=== PATIENT | female | born 1960 | race Two or more races ===

== ENCOUNTER → 2020-06-20 11:37 | Outpatient (BNVA) | payer OTHER, SELFPAY | PROVIDERS: PCP Physician Assistant; Referring Provider Physician Assistant; Visit Provider Internal Medicine Gastroenterology | DX: Z13.89 Encounter for screening for other disorder (principal) ==

== ENCOUNTER 2020-08-30 07:53 | Outpatient (REF) | payer OTHER, SELFPAY | END 2020-08-30 07:54 | disposition home or self-care (01) | LOC: HO.LAB 07:53 | PROVIDERS: PCP Physician Assistant; Visit Provider Internal Medicine | DX: Z20.828 Contact with and (suspected) exposure to other viral communicable diseases (principal) | CPT/HCPCS: C9803; U0003 ==

== ENCOUNTER → 2020-12-20 11:11 | Outpatient (BNVA) | payer OTHER, SELFPAY | PROVIDERS: Visit Provider Internal Medicine Gastroenterology ==

== ENCOUNTER 2021-01-31 07:52 | Outpatient (REF) | payer OTHER, SELFPAY ==
[2021-01-31 08:55] LABS: MANUAL DIFF FLAG NO
[2021-01-31 08:57] LABS: Basophils Absolute Auto 0.1 X10*3/uL (0.0-0.2); Basophils Percent Auto 0.7 % (0-2); Eosinophils Absolute Auto 0.2 X10*3/uL (0.0-0.4); Eosinophils Percent Auto 2.6 % (0-4); Hematocrit 44.3 % (37-47); Hemoglobin 14.2 g/dl (12.0-16.0); Imm Gran Abs Auto 0.03 X10*3/uL (0.00-0.03); Imm Gran Pct Auto 0.3 % (0.0-0.4); Lymphocytes Absolute Auto 4.6 X10*3/uL (1.2-4.9); Lymphocytes Percent Auto 50.5 % (20-40); Mean Corpuscular HGB Conc 32.1 g/dl (31.0-35.0); Mean Corpuscular Hemoglobin 28.9 pg (27.0-33.0); Mean Corpuscular Volume 90.2 fL (80-98); Mean Platelet Volume 10.3 fL (9.4-12.3); Monocytes Absolute Auto 0.8 X10*3/uL (0.1-1.2); Monocytes Percent Auto 8.3 % (2-11); Neutrophils Absolute Auto 3.4 X10*3/uL (2.0-8.3); Neutrophils Percent Auto 37.6 % (45-73); Platelet Count 378 X10*3/uL (160-400); Red Blood Count 4.91 X10*6/uL (4.20-5.50); Red Cell Distribution Width 13.1 % (11.0-16.0); White Blood Count 9.2 X10*3/uL (4.8-10.8)
[2021-01-31 09:25] LABS: Lipase 22 U/L (8-78)
[2021-01-31 09:27] LABS: Alanine Aminotransferase 29 U/L (0-31); Albumin Level 4.5 g/dL (3.5-5.0); Alkaline Phosphatase 83 U/L (39-117); Anion Gap 15 (12-20); Aspartate Amino Transferase 28 U/L (5-31); Bilirubin Total 0.8 mg/dL (0.0-1.0); Blood Urea Nitrogen 14 mg/dL (9-16); Calcium 9.9 mg/dL (8.4-10.2); Carbon Dioxide 26 mmol/L (22-29); Chloride 107 mmol/L (96-108); Cholesterol 137 mg/dL; Estimated Glomerular Filt Rate > 60; Glucose Fasting 99 mg/dL (60-99); HDL Cholesterol 47 mg/dL; LDL Cholesterol Calculated 68 mg/dl; Potassium 4.6 mmol/L (3.3-5.1); Sodium 143 mmol/L (135-145); Total Protein 7.6 g/dL (6.5-8.0); Triglycerides 111 mg/dL; Uric Acid 6.6 mg/dL (2.4-5.7)
[2021-01-31 09:44] LABS: Creatinine Urine 26.61 mg/dL; Microalbumin Urine < 5.0 mg/L
[2021-01-31 09:46] LABS: TSH reflex Free T4 0.94 uIU/mL (0.32-4.0); Vitamin D 25-OH Total 48.6 ng/mL (>30)
== END 2021-01-31 07:53 | disposition home or self-care (01) ==
LOC: HO.LAB 07:52
PROVIDERS: Absent Provider Physician Assistant; PCP Physician Assistant; Visit Provider Internal Medicine Gastroenterology
DX: E78.5 Hyperlipidemia, unspecified (principal); I10 Essential (primary) hypertension; K21.9 Gastro-esophageal reflux disease without esophagitis; R80.9 Proteinuria, unspecified; M10.9 Gout, unspecified
CPT/HCPCS: 36415; 80053; 80061; 82043; 82306; 83690; 84443; 84550; 85025

== ENCOUNTER 2021-03-12 07:45 | Outpatient (REF) | payer OTHER, SELFPAY ==
--- NOTE | ~2021-03-12 | MM_ITS ---
EXAMINATION: MM SCREENING DIGITAL BREAST TOMOSYNTHESIS, BILATERAL CLINICAL INFORMATION: Screening. Asymptomatic. The lifetime risk of breast cancer based on the Tyrer-Cuzick Model is 5.0%. COMPARISON: Mammography: March 02, 2020 and studies dating back to June 09, 2014 TECHNIQUE: Digital breast tomosynthesis is performed in both the craniocaudal and mediolateral oblique views along with computer-aided detection (CAD). Synthesized 2D images are generated from the tomosynthesis. FINDINGS: The breasts are heterogeneously dense, which may obscure small masses (ACR BI-RADS breast composition Category c). There are no significant masses, abnormal calcifications, or other abnormalities. MM/MM tomosynthesis screening BI IMPRESSION: There are no significant changes from prior study. ASSESSMENT: BI-RADS 1: Negative RECOMMENDATION: Routine annual mammography screening. This patient's information was entered into a reminder system with a target due date for their next mammogram.
== END 2021-03-12 07:46 | disposition home or self-care (01) ==
LOC: HO.MAMMO 07:45
PROVIDERS: Visit Provider Physician Assistant
DX: Z12.31 Encounter for screening mammogram for malignant neoplasm of breast (principal)
CPT/HCPCS: 77063; 77067

== ENCOUNTER 2021-05-06 07:23 | Outpatient (REF) | payer OTHER, SELFPAY | END 2021-05-06 07:24 | disposition home or self-care (01) | LOC: HO.LAB 07:23 | PROVIDERS: PCP Physician Assistant; Visit Provider Physician Assistant | DX: Z13.89 Encounter for screening for other disorder (principal) ==

== ENCOUNTER 2021-05-06 07:25 | Outpatient (REF) | payer OTHER, SELFPAY ==
[2021-05-06 07:51] LABS: Hemoglobin 13.8 g/dl (12.0-16.0); Mean Corpuscular HGB Conc 32.1 g/dl (31.0-35.0); Mean Corpuscular Hemoglobin 28.9 pg (27.0-33.0); Mean Platelet Volume 9.9 fL (9.4-12.3); Platelet Count 401 X10*3/uL (160-400); Red Blood Count 4.78 X10*6/uL (4.20-5.50)
[2021-05-06 08:28] LABS: Alanine Aminotransferase 23 U/L (0-31); Albumin Level 4.5 g/dL (3.5-5.0); Alkaline Phosphatase 81 U/L (39-117); Anion Gap 15 (12-20); Aspartate Amino Transferase 23 U/L (5-31); Bilirubin Total 0.4 mg/dL (0.0-1.0); Blood Urea Nitrogen 13 mg/dL (9-16); Calcium 9.6 mg/dL (8.4-10.2); Carbon Dioxide 24 mmol/L (22-29); Chloride 110 mmol/L (96-108); Cholesterol 140 mg/dL; Estimated Glomerular Filt Rate > 60; Glucose Fasting 101 mg/dL (60-99); HDL Cholesterol 47 mg/dL; LDL Cholesterol Calculated 66 mg/dl; Potassium 4.6 mmol/L (3.3-5.1); Sodium 144 mmol/L (135-145); Total Protein 7.7 g/dL (6.5-8.0); Triglycerides 136 mg/dL
[2021-05-06 08:31] LABS: TSH reflex Free T4 1.24 uIU/mL (0.32-4.0)
[2021-05-06 08:33] LABS: Uric Acid 6.7 mg/dL (2.4-5.7)
[2021-05-06 09:40] LABS: Creatinine Urine 90.71 mg/dL; Microalbum/Creatinine Ratio Ur 14.3 ug/mg cr
== END 2021-05-06 07:26 | disposition home or self-care (01) ==
LOC: HO.LAB 07:25
PROVIDERS: PCP Physician Assistant; Visit Provider Internal Medicine
DX: Z20.822 Contact with and (suspected) exposure to COVID-19 (principal); I10 Essential (primary) hypertension; M10.9 Gout, unspecified
CPT/HCPCS: 36415; 80053; 80061; 82043; 84443; 84550; 85027; C9803; U0003; U0005

== ENCOUNTER 2021-06-12 13:45 | Outpatient (REF) | payer SELFPAY ==
[2021-06-12 15:37] LABS: MANUAL DIFF FLAG NO
[2021-06-12 15:51] LABS: Basophils Absolute Auto 0.1 X10*3/uL (0.0-0.2); Basophils Percent Auto 0.6 % (0-2); Eosinophils Absolute Auto 0.3 X10*3/uL (0.0-0.4); Eosinophils Percent Auto 2.6 % (0-4); Hematocrit 43.2 % (37-47); Hemoglobin 14.2 g/dl (12.0-16.0); Imm Gran Abs Auto 0.04 X10*3/uL (0.00-0.03); Imm Gran Pct Auto 0.4 % (0.0-0.4); Lymphocytes Absolute Auto 4.9 X10*3/uL (1.2-4.9); Lymphocytes Percent Auto 46.3 % (20-40); Mean Corpuscular HGB Conc 32.9 g/dl (31.0-35.0); Mean Corpuscular Hemoglobin 29.2 pg (27.0-33.0); Mean Corpuscular Volume 88.7 fL (80-98); Mean Platelet Volume 9.5 fL (9.4-12.3); Monocytes Absolute Auto 0.9 X10*3/uL (0.1-1.2); Neutrophils Absolute Auto 4.5 X10*3/uL (2.0-8.3); Neutrophils Percent Auto 42.1 % (45-73); Platelet Count 398 X10*3/uL (160-400); Red Blood Count 4.87 X10*6/uL (4.20-5.50); Red Cell Distribution Width 13.2 % (11.0-16.0); White Blood Count 10.7 X10*3/uL (4.8-10.8)
[2021-06-12 16:15] LABS: Alanine Aminotransferase 23 U/L (0-31); Albumin Level 4.5 g/dL (3.5-5.0); Alkaline Phosphatase 73 U/L (39-117); Anion Gap 12 (12-20); Aspartate Amino Transferase 25 U/L (5-31); Bilirubin Total 0.6 mg/dL (0.0-1.0); Blood Urea Nitrogen 11 mg/dL (9-16); C Reactive Protein 0.63 mg/dL (< or = 0.50); Calcium 9.6 mg/dL (8.4-10.2); Carbon Dioxide 27 mmol/L (22-29); Chloride 105 mmol/L (96-108); Estimated Glomerular Filt Rate > 60; Glucose Random 102 mg/dL (60-115); Lipase 23 U/L (8-78); Potassium 4.2 mmol/L (3.3-5.1); Sodium 140 mmol/L (135-145); Total Protein 7.8 g/dL (6.5-8.0)
== END 2021-06-12 13:46 | disposition home or self-care (01) ==
LOC: HO.LAB 13:45
PROVIDERS: PCP Physician Assistant; Referring Provider Physician Assistant; Visit Provider Internal Medicine Gastroenterology
DX: R10.10 Upper abdominal pain, unspecified (principal); R11.2 Nausea with vomiting, unspecified; K76.0 Fatty (change of) liver, not elsewhere classified; K59.09 Other constipation; K21.9 Gastro-esophageal reflux disease without esophagitis; Z86.010 Personal history of colon polyps
CPT/HCPCS: 36415; 80053; 83690; 85025; 86140

== ENCOUNTER → 2021-07-10 13:21 | Outpatient (BNVA) | payer OTHER, SELFPAY | PROVIDERS: PCP Physician Assistant; Referring Provider Physician Assistant; Visit Provider Internal Medicine Gastroenterology ==

== ENCOUNTER 2022-04-06 08:52 | Outpatient (REF) | payer OTHER, SELFPAY ==
--- NOTE | ~2022-04-06 | MM_ITS ---
EXAMINATION: MM SCREENING DIGITAL BREAST TOMOSYNTHESIS, BILATERAL CLINICAL INFORMATION: Screening. Asymptomatic. The lifetime risk of breast cancer based on the Tyrer-Cuzick Model is 5%. COMPARISON: Mammography: 03/12/2021, 03/02/2020, 12/31/2018 TECHNIQUE: Digital breast tomosynthesis is performed in both the craniocaudal and mediolateral oblique views along with computer-aided detection (CAD). Synthesized 2D images are generated from the tomosynthesis. Additional left MLO view is provided. FINDINGS: There are scattered areas of fibroglandular density (ACR BI-RADS breast composition Category b). Parenchymal pattern is similar to prior exams. There is no developing density or interval mass or architectural abnormality. Again, there are scattered bilateral regional calcifications anterior mid upper outer quadrants. The axilla and skin contours are unremarkable. No significant changes. MM/MM tomosynthesis screening BI IMPRESSION: No mammographic evidence of malignancy. ASSESSMENT: BI-RADS 2: Benign RECOMMENDATION: Routine annual mammography screening. This patient's information was entered into a reminder system with a target due date for their next mammogram.
== END 2022-04-06 08:53 | disposition home or self-care (01) ==
LOC: HO.MAMMO 08:52
PROVIDERS: PCP Physician Assistant; Visit Provider Physician Assistant
DX: Z12.31 Encounter for screening mammogram for malignant neoplasm of breast (principal)
CPT/HCPCS: 77063; 77067

== ENCOUNTER 2022-04-22 07:30 | Outpatient (REF) | payer OTHER, SELFPAY ==
[2022-04-22 07:38] LABS: MANUAL DIFF FLAG NO
[2022-04-22 09:13] LABS: Basophils Absolute Auto 0.1 X10*3/uL (0.0-0.2); Basophils Percent Auto 0.9 % (0-2); Eosinophils Absolute Auto 0.3 X10*3/uL (0.0-0.4); Eosinophils Percent Auto 3.2 % (0-4); Hematocrit 42.6 % (37.0-47.0); Hemoglobin 13.8 g/dl (12.0-16.0); Imm Gran Abs Auto 0.03 X10*3/uL (0.00-0.03); Imm Gran Pct Auto 0.3 % (0.0-0.4); Lymphocytes Absolute Auto 4.3 X10*3/uL (1.2-4.9); Lymphocytes Percent Auto 48.9 % (20-40); Mean Corpuscular HGB Conc 32.4 g/dl (31.0-35.0); Mean Corpuscular Hemoglobin 28.9 pg (27.0-33.0); Mean Corpuscular Volume 89.1 fL (80.0-98.0); Mean Platelet Volume 10.1 fL (9.4-12.3); Monocytes Absolute Auto 0.7 X10*3/uL (0.1-1.2); Monocytes Percent Auto 8.1 % (2-11); Neutrophils Absolute Auto 3.4 x10*3/uL (2.0-8.3); Neutrophils Percent Auto 38.6 % (45-73); Platelet Count 382 X10*3/uL (160-400); Red Blood Count 4.78 X10*6/uL (4.20-5.50); Red Cell Distribution Width 13.1 % (11.0-16.0); White Blood Count 8.7 X10*3/uL (4.8-10.8)
[2022-04-22 09:54] LABS: Alanine Aminotransferase 25 U/L (0-31); Albumin Level 4.2 g/dL (3.5-5.0); Alkaline Phosphatase 93 U/L (39-117); Aspartate Amino Transferase 26 U/L (5-31); Bilirubin Direct 0.2 mg/dL (0.0-0.5); Bilirubin Total 0.5 mg/dL (0.0-1.0); Total Protein 7.4 g/dL (6.5-8.0)
[2022-04-22 10:02] LABS: Vitamin D 25-OH Total 26.9 ng/mL (>30)
[2022-04-22 10:23] LABS: Folate 8.2 ng/mL (> or = 4.0); Vitamin B12 391 pg/mL (200-900)
== END 2022-04-22 07:31 | disposition home or self-care (01) ==
LOC: HO.LAB 07:30
PROVIDERS: Absent Provider Physician Assistant; PCP Physician Assistant; Visit Provider Internal Medicine Gastroenterology
DX: K21.9 Gastro-esophageal reflux disease without esophagitis (principal)
CPT/HCPCS: 36415; 80076; 82306; 82607; 82746; 85025

== ENCOUNTER 2022-07-01 07:52 | Outpatient (REF) | payer OTHER, SELFPAY ==
[2022-07-01 09:29] LABS: Appearance Urine Clear; Color Urine Yellow; Glucose Urine UA Negative (Negative); Leukocyte Esterase Urine Small (1+) (Negative); Nitrite Urine Negative (Negative); Specific Gravity - Urine <= 1.005 (1.005-1.025); UMIC TRIGGER UACC YES; Urine Blood Trace (Negative); Urine Ketones Negative (Negative); Urine Protein Negative (Neg-Trace)
[2022-07-01 09:34] LABS: Bacteria Urine None Seen (None Seen); Hyaline Casts Urine 0-2 /LPF (0-2); RBC Urine 0-2 /HPF (0-2); Squamous Epithelial Cell Urine 0-2 /HPF (0-2); UACC Culture Trigger YES
== END 2022-07-01 07:53 | disposition home or self-care (01) ==
LOC: HO.LAB 07:52
PROVIDERS: PCP Physician Assistant; Visit Provider Physician Assistant
DX: R30.0 Dysuria (principal)
CPT/HCPCS: 81001; 87086

== ENCOUNTER 2022-10-05 07:02 | Day surgery (SDC) | payer OTHER, SELFPAY ==
[2022-09-30 09:21] VITALS: BMI 32.2
[2022-10-05 07:11] VITALS: BP 144/73; PULSE 80; RESP 18; TEMP 36.1; O2SAT 97
[2022-10-05] MEDS: Lactated Ringers 1,000 ML 100 ML IVCONT (07:27)
--- NOTE | 2022-10-05 07:36 | HO.ANESPROP2 ---
HPI - Anesthesia Eval Consult details Narrative: 62 F for colonoscopy [facility] Active Problems Active Problems: All Active Problems (Updated 09/30/22 @ 09:14 by Elsa Cai RN) HTN (hypertension) (Acute) Annual physical exam (Acute) Herpes labialis (Acute) Gout (Acute) Anxiety (Acute) Upper abdominal pain (Acute) Nausea and vomiting (Acute) Annual physical exam (Acute) Allergic reaction (Acute) Dry cough (Acute) Stress incontinence (Acute) UTI (urinary tract infection) (Acute) Vasomotor symptoms due to menopause (Acute) Obese (Acute) Irritation of eye (Acute) Fatty liver (Acute) History of adenomatous polyp of colon (Acute) Chronic constipation (Acute) GERD without esophagitis (Acute) Past Medical History Medical History (Updated 09/30/22 @ 09:14 by Elsa Cai RN) Chronic constipation Fatty liver GERD without esophagitis History of adenomatous polyp of colon History of Helicobacter pylori infection HTN (hypertension) Irritation of eye Family History Family History Father Hypertension Myocardial infarction CAD (coronary artery disease) Mother Hypertension Thyroid disease Family/Other Heart disease Asthma Epilepsy Family history of problems with anesthesia: No Surgical History Surgical History (Updated 09/30/22 @ 09:14 by Elsa Cai RN) History of bilateral cataract extraction History of laparoscopic cholecystectomy History of total abdominal hysterectomy Hx of colonoscopy Hx of endoscopy History of Problems with Anesthesia: No Social History Social History Household Members: Significant Other Housing: Apartment Alcohol intake: never Patient Tobacco Use Status: Never used Tobacco e-Cigarette/Vaping Use: Never Used Second Hand Smoke Exposure: No service: No Current occupational status: employed 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 Cognitive needs: No Hearing needs: No Vision needs: Yes Meds Allergies Allergy/AdvReac Type Severity Reaction Status Date / Time indomethacin Allergy Intermediate stomach Verified 09/30/22 09:14 upset, panic attack metoprolol AdvReac Intermediate Fatigue Verified 07/14/22 08:11 tizanidine AdvReac Intermediate hallucinati Verified 09/30/22 09:14 on Exam Exam Date and Time: October 05, 2022 0736 Height,Weight and Vital Signs: Height 4 ft 4 in Weight 56.245 kg Last Vital Signs Temp 97 F 10/05/22 07:11 Pulse 80 10/05/22 07:11 Resp 18 10/05/22 07:11 BP 144/73 H 10/05/22 07:11 Pulse Ox 97 10/05/22 07:11 O2 Del Method 10/05/22 07:11 Airway Mallampati Class: III TM Dist: >3cm Neck ROM: Full Loose/Missing/Broken Teeth: Yes Heart: S1,S2 Lungs: b/l breath sounds Assessment and Plan Assessment Anesthesia Assessment: Anesthesia Plan Discussed and Chart Reviewed Final Anesthetic Review Family History of Problems with Anesthesia: No History of Problems with Anesthesia: No NPO: Yes ASA Class: II Final Preanesthetic Review: Meds/Allgs Chart Reviewed, Consent Obtained/Reviewed and Anes Risks/Benef Reviewed Patient Risk: Intermediate Procedure Risk: Intermediate Anesthetic Plan Anesthetic Plan: MAC: Disposition: Standard PACU
--- NOTE | 2022-10-05 07:42 | MHC.SHP ---
Pre-Procedural Eval Section A Date of Service: 10/05/22 The patient is an INPATIENT: No The History & Physical has been completed within 30 days and I have reviewed it.: No Section B Chief Complaint: Personal history of colonic polyps Details of Present Illness: Screening, history of colon polyps Relevant Family History (Specify if Yes): No Relevant Social History: None Present Medications: see Short Stay Collaborative assessment Medical History: Significant History (Chronic constipation Fatty liver GERD without esophagitis History of adenomatous polyp of colon History of Helicobacter pylori infection Irritation of eye) History of Previous Operations: Relevant previous surgery/procedure and date(s) (History of bilateral cataract extraction History of laparoscopic cholecystectomy History of total abdominal hysterectomy Hx of colonoscopy Hx of endoscopy) Allergies: Allergies Allergy/AdvReac Type Severity Reaction Status Date / Time indomethacin Allergy Intermediate stomach Verified 09/30/22 09:14 upset, panic attack metoprolol AdvReac Intermediate Fatigue Verified 07/14/22 08:11 tizanidine AdvReac Intermediate hallucinati Verified 09/30/22 09:14 on Review of Systems Sugical H&P ROS: Negative: Constitution, Cardiovascular, Respiratory and Gastrointestinal Exam Surgical H&P Exam: Normal: Heart, Normal: Lungs, Normal: Extremities and Normal: Abdomen Plan Diagnosis/Plan: Unchanged I have reviewed the history and physical and performed a pertinent physical examination on my patient. No changes have occurred unless specified. Time Spent With Patient Time: Total time managing care of this patient today ____ minutes.
--- NOTE | 2022-10-05 07:48 | PM.OP ---
Brief Operative Note Date of Service: 10/05/22 Pre-op diagnosis: Colon cancer screening, history of colon polyps Post-op diagnosis: other (Diverticulosis, hemorrhoids) Procedure: COLONOSCOPY TO CECUM WITH BIOPSIES Surgeon: Frederic Garrison MD Anesthesia: MAC Was an Certified Nurse Aide used for this Procedure?: Yes Certified Nurse Aide: Marguerite Bear Estimated blood loss (mL): 0 Pathology: other (A. sigmoid bxs, R/O microscopic colitis) Condition: stable Disposition: PACU
--- NOTE | 2022-10-05 07:48 | W.PM.OPN ---
Operative Note Operative Note Date of Service: 10/05/22 Narrative: Pre-op diagnosis: Colon cancer screening, history of colon polyps Post-op diagnosis:?other (Diverticulosis, hemorrhoids) Surgeon: Frederic Garrison MD Anesthesia:?MAC COLONOSCOPY TILL CECUM WITH BIOPSIES Consent: Indications for the procedure and potential complications of bleeding, perforation, reaction to medications and missed diagnosis were discussed with the patient and informed consent was obtained. Instrument: Olympus PCF H 190 L variable stiffness pediatric colonoscope Monitoring: Vital signs and clinical assessment, intermittent blood pressure monitoring, continuous EKG monitoring, Pulse oximetry and Carbon Dioxide monitoring were done throughout the procedure. Colon withdrawl time was 17 minutes. Procedure: The patient was placed in the left lateral decubitis position and pre-procedure medications were administered. After a digital rectal examination of the ano-rectum, the video colonoscope was inserted into the rectum and advanced through the colon to the cecum. The colonoscope was slowly withdrawn in a retrograde panoramic fashion and the colon mucosa was carefully examined including a retroflexed view of the rectum. Findings and interventions are described below. Procedure Difficulty: Without difficulty Findings: Terminal Ileum: Not evaluated Cecum: Normal Ascending Colon: Patchy erythema in the right colon with scattered ulcers with some heme. Transverse Colon: Normal Descending Colon: Normal Sigmoid Colon: Patchy erythema in the right colon with scattered ulcers with some heme - random biopsies were obtained. Moderate diverticulosis Rectum: Normal Ano-rectum: Moderate internal hemorrhoids Colon preparation: Good after some irrigation Impression and Post Procedure Diagnosis: Colonoscopy Findings: No polyps were detected. Patchy erythema in the right colon with scattered ulcers with some heme - random biopsies were obtained. (Pt denied NSAID or aspirin use) Moderate diverticulosis seen in the sigmoid colon Moderate hemorrhoids on retroflexed exam. Plan: Await pathology results Patient has an appointment on 10/22/22 in the GI Clinic with Frederic Garrison M.D. Repeat Colonoscopy in 5 years if biopsies are normal. Above findings were reviewed with the patient and diverticulosis handout was given in the discharge area
[2022-10-05 08:29] VITALS: BP 131/80; PULSE 66; RESP 14; TEMP 37.5; O2SAT 99
[2022-10-05 08:44] VITALS: BP 142/82; PULSE 65; RESP 16; O2SAT 97
[2022-10-05 08:59] VITALS: BP 152/88; PULSE 63; RESP 16; TEMP 37.3; O2SAT 97
== END 2022-10-05 09:30 | disposition home or self-care (01) ==
PROVIDERS: PCP Physician Assistant; Visit Provider Internal Medicine Gastroenterology
PROC: 0DJD8ZZ Inspection of Lower Intestinal Tract, Via Natural or Artificial Opening Endoscopic (ICD-10-PCS; CPT 45378; principal; 2022-10-05 08:30)
DX: Z12.11 Encounter for screening for malignant neoplasm of colon (principal); Z86.010 Personal history of colon polyps; K57.30 Diverticulosis of large intestine without perforation or abscess without bleeding; K64.8 Other hemorrhoids; K59.09 Other constipation; K76.0 Fatty (change of) liver, not elsewhere classified; I10 Essential (primary) hypertension; F41.9 Anxiety disorder, unspecified; N95.1 Menopausal and female climacteric states; E66.09 Other obesity due to excess calories; Z68.32 Body mass index [BMI] 32.0-32.9, adult; Z79.899 Other long term (current) drug therapy; Z88.8 Allergy status to other drugs, medicaments and biological substances
CPT/HCPCS: 45380; 88305

== ENCOUNTER → 2022-10-29 07:35 | Outpatient (BNVA) | payer OTHER, SELFPAY | PROVIDERS: PCP Physician Assistant; Referring Provider Physician Assistant; Visit Provider Internal Medicine Gastroenterology | DX: Z13.89 Encounter for screening for other disorder (principal) ==

== ENCOUNTER 2023-02-02 09:39 | Outpatient (REF) | payer OTHER, SELFPAY ==
[2023-02-02 10:24] LABS: Hematocrit 42.4 % (37.0-47.0); Hemoglobin 13.8 g/dl (12.0-16.0); Mean Corpuscular HGB Conc 32.5 g/dl (31.0-35.0); Mean Corpuscular Hemoglobin 29.1 pg (27.0-33.0); Mean Corpuscular Volume 89.3 fL (80.0-98.0); Mean Platelet Volume 9.9 fL (9.4-12.3); Platelet Count 379 X10*3/uL (160-400); Red Blood Count 4.75 X10*6/uL (4.20-5.50); Red Cell Distribution Width 13.1 % (11.0-16.0); White Blood Count 8.6 X10*3/uL (4.8-10.8)
[2023-02-02 11:26] LABS: Appearance Urine Clear; Color Urine Yellow; Glucose Urine UA Negative (Negative); Leukocyte Esterase Urine Trace (Negative); Nitrite Urine Negative (Negative); PH 5.5 (5.0-9.0); UMIC TRIGGER UACC YES; Urine Blood Negative (Negative); Urine Ketones Negative (Negative); Urine Protein Negative (Neg-Trace)
[2023-02-02 11:29] LABS: Alanine Aminotransferase 29 U/L (0-31); Albumin Level 4.2 g/dL (3.5-5.0); Alkaline Phosphatase 75 U/L (39-117); Anion Gap 14 (12-20); Aspartate Amino Transferase 32 U/L (5-31); Bilirubin Total 0.7 mg/dL (0.0-1.0); Blood Urea Nitrogen 12 mg/dL (9-16); Calcium 9.5 mg/dL (8.4-10.2); Carbon Dioxide 24 mmol/L (22-29); Chloride 109 mmol/L (96-108); Cholesterol 146 mg/dL; Estimated Glomerular Filt Rate > 60; Glucose Fasting 92 mg/dL (60-99); HDL Cholesterol 43 mg/dL; LDL Cholesterol Calculated 79 mg/dl; Potassium 4.5 mmol/L (3.3-5.1); Sodium 142 mmol/L (135-145); TSH reflex Free T4 0.98 uIU/mL (0.32-4.0); Total Protein 7.4 g/dL (6.5-8.0); Triglycerides 121 mg/dL; Uric Acid 6.9 mg/dL (2.4-5.7)
[2023-02-02 11:35] LABS: Bacteria Urine None Seen (None Seen); Hyaline Casts Urine 0-2 /LPF (0-2); RBC Urine 0-2 /HPF (0-2); Squamous Epithelial Cell Urine 0-2 /HPF (0-2); WBC Urine 0-5 /HPF (0-5)
[2023-02-02 12:08] LABS: Creatinine Urine 132.88 mg/dL; Microalbum/Creatinine Ratio Ur 5.2 ug/mg cr
== END 2023-02-02 09:40 | disposition home or self-care (01) ==
LOC: HO.LAB 09:39
PROVIDERS: PCP Physician Assistant; Visit Provider Physician Assistant
DX: I10 Essential (primary) hypertension (principal); M10.9 Gout, unspecified
CPT/HCPCS: 36415; 80053; 80061; 81001; 82043; 84443; 84550; 85027

== ENCOUNTER 2023-04-29 07:13 | Outpatient (AMB) | payer OTHER, SELFPAY ==
--- NOTE | 2023-04-29 07:28 | A.OFFVIS_ITS ---
Intake Vital Signs 04/29/23 07:31 Height 4 ft 4 in Weight 117 lb 4 oz BMI 30.5 BP 145/65 H Blood Pressure Location Lt brachial Position Sitting Pulse 68 Intake Visit Reasons: 6 month fu Intake Note: Patient follow up for chronic constipation. Patient cc: abdominal pain/bloating, acid reflex on and off, and constipation on and off.. Aurist Required: No Accompanied by: Spouse Allergies indomethacin Allergy (Intermediate, Verified 04/29/23 07:27) stomach upset, panic attack metoprolol Adverse Reaction (Intermediate, Verified 04/29/23 07:27) Fatigue tizanidine Adverse Reaction (Intermediate, Verified 04/29/23 07:27) hallucination Medication List - Last Reconciled 04/29/23 by Frederic Garrison MD benzonatate 200 mg PO BID PRN 7 days cholecalciferol (vitamin D3) 250 mcg PO 2XW 90 days famotidine 20 mg PO DAILY 30 days fluoxetine 10 mg PO DAILY 90 days lubiprostone 8 mcg PO BID 90 days olopatadine 0.2% 1 drp ophthalmic (eye) DAILY sennosides (senna) 17.2 mg (2 x 8.6 mg) PO DAILY PRN 90 days valacyclovir 2,000 mg (2 x 1 gram) PO Q12H 1 day valsartan 80 mg PO DAILY 90 days HPI 6 month fu HPI Details GI CLINIC VISIT FOR THIS 62-YEAR-OLD FEMALE FOR FU of FATTY LIVER WITH ELEVATED LFTS AND CHRONIC CONSTIPATION. Pt is status post cholecystectomy. ? CHRONIC ILLNESSES:?shoulder pain, muscle spasms, urinary incontinence, osteoarthritis, DEPRESSION, CONSTIPATION, LEUKOCYTOSIS. ?LABS IN [facility]:03/18/20 REVIEWED MILDLY ELEVATED LFTS WITH AST OF 45, ALT 40, ALKALINE PHOSPHATASE 107, HEPATITIS-B AND C SEROLOGIES WERE NEGATIVE IN THE PAST.? ? Stool test was negative for Helicobacter pylori. ?IMAGING STUDIES: 08/2017 ABDOMINAL ULTRASOUND SHOWED: ? IMPRESSION: ? Echogenic liver probably representing fatty infiltration. Otherwise unremarkable exam. ?ENDOSCOPIC STUDIES: 10/05/22 COLONOSCOPY SHOWED: No polyps were detected. Patchy erythema in the right colon with scattered ulcers with some heme - random biopsies were obtained. (Pt denied NSAID or aspirin use) Moderate diverticulosis seen in the sigmoid colon Moderate hemorrhoids on retroflexed exam. Plan:? Repeat Colonoscopy in 5 years if biopsies are normal. random biopsies were normal ?TODAY'S VISIT: Lost 8 lbs after she had a bad gout attack Started to cut back on her caloric and sugar intake and foods which cause inflammation Unable to work for 2 days and treated with Prednisone for the pain. Taking a natural medication to control the uric acid (Quercitin) GERD controlled with Famotidine and takes Omperazole prn for breakthrough symptoms Continues to have intermittent constipation Taking zuleima and flax seeds and drinking a lot of water. Has a BM daily PAST VISIT: Colonoscopy results reviewed. Constipation is better with Lubiprostone. Takes Omeprazole prn and occasionally Famotidine for GERD Accompanied by her (Got end of March,) Had bad heartburn on 04/20/22 after eating [place] [employer]. Takes Omeprazole prn and advised to take it daily. Not straining too much since starting Lubiprostone. Intermittent episodes of pain during swallowing - mostly solids. Denies food getting stuck. It goes down and she feels some pressure throughout the esophagus while swallowing Has been eating soft foods and chewing it more. Always has heartburn especially at night. Taking Omeprazole and famotidine prn and not daily. Elevates HOB with pillows and advised to use a wedge. Always having issues with the constipation which effects her hemorrhoids. BMs are hard and associated with straining and causes her hemorrhoids to come out. Complains of 6-7/10 cramping and burning upper abdominal pain radiating to the back since 06/09/21 Has nausea, vomiting and diarrhea Complains of chills and denies fever. Has not been able to eat.? Has nausea after she eats and has to go to the bathroom. Taking crackers and joseph renee. Diarrhea appears to be resolving today. Admits to being anxious since her daughter is not talking to her. Due for 2nd dose of COVID vaccine on 12/31/20 ? Had similar pain last year and ended up vomiting in the ER at [facility] Treated with medications for nausea with improvement in her symptoms. ? Doing ok besides the COVID issue. ? She was having problems with gout [facility] Medical History (Updated 04/29/23 @ 07:34 by Frederic Garrison MD) Chronic constipation Fatty liver GERD without esophagitis History of adenomatous polyp of colon History of Helicobacter pylori infection HTN (hypertension) Irritation of eye Surgical History History of bilateral cataract extraction History of laparoscopic cholecystectomy History of total abdominal hysterectomy Hx of colonoscopy Hx of endoscopy Family History Father Hypertension Myocardial infarction CAD (coronary artery disease) Mother Hypertension Thyroid disease Family/Other Heart disease Asthma Epilepsy Social History Household Members: Significant Other Housing: Apartment Alcohol intake: never Patient Tobacco Use Status: Never used Tobacco e-Cigarette/Vaping Use: Never Used Second Hand Smoke Exposure: No service: No Current occupational status: employed 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 Cognitive needs: No Hearing needs: No Vision needs: Yes Review of Systems Const All systems reviewed & are unremarkable except as noted in HPI and below Physical Exam Const General: healthy appearing and no acute distress Nutritional Appearance: obese Orientation/consciousness: patient oriented x3 Limitations: no limitations HEENT Head: Yes normal to inspection Ears: hearing grossly normal bilaterally Mouth: Normal oral and palatal mucosa present Eyes Sclerae: sclerae normal Pupils: Equal, round and reactive pupils present Neck Neck: Yes normal visual inspection Chest Chest palpation & inspection: normal inspection of the chest Resp Effort & Inspection: normal respiratory effort Auscultation: clear to auscultation bilaterally Cardio Palpation: normal PMI Rate: regular rate Rhythm: regular rhythm Heart sounds: S1 normal heart sound present, S2 normal heart sound present and no murmurs GI Palpation (GI): Soft to palpation, nontender and No hepatosplenomegaly present Auscultation: normal bowel sounds Rectal Exam - Female: deferred Skin General skin exam: no rashes or lesions noted Neuro General: patient oriented x3, gait normal and moves all extremities Cranial nerves: Yes Equal, round and reactive pupils present Psych Appearance: grossly normal Mental Status: mental status grossly normal Assessment & Plan Assessment & Plan (1) Upper abdominal pain: Code(s): R10.10 - Upper abdominal pain, unspecified (2) Nausea and vomiting: Code(s): R11.2 - Nausea with vomiting, unspecified (3) Fatty liver: Code(s): K76.0 - Fatty (change of) liver, not elsewhere classified (4) History of adenomatous polyp of colon: Comment: Three adenomatous polyps were removed during colonoscopy in Sep, 2019. 10/05/22 COLONOSCOPY SHOWED: No polyps were detected. Patchy erythema in the right colon with scattered ulcers with some heme - random biopsies were obtained. (Pt denied NSAID or aspirin use) Moderate diverticulosis seen in the sigmoid colon Moderate hemorrhoids on retroflexed exam. Plan: Repeat Colonoscopy in 5 years Code(s): Z86.010 - Personal history of colonic polyps (5) Chronic constipation: Code(s): K59.09 - Other constipation (6) GERD without esophagitis: Comment: Continue omeprazole 20 mg once daily. Patient was treated with triple therapy for Helicobacter pylori consisting of clarithromycin, amoxicillin and om eprazole for 10 days. Follow-up stool for H pylori antigen was negative. Code(s): K21.9 - Gastro-esophageal reflux disease without esophagitis Plan 62 YF with shoulder pain, muscle spasms, urinary incontinence, osteoarthritis, DEPRESSION, CONSTIPATION, LEUKOCYTOSIS followed in GI for GERD, epigastric pain, chronic constipation, fatty liver related to obesity. Sep, 2019 Upper endoscopy showed nodular gastritis and gastric biopsies were positive for H pylori. Three adenomatous polyps were removed during same-day colonoscopy. Repeat colonoscopy is advised in 3 years and action was set in [facility]. Helicobacter pylori (H. pylori) infection - pt was treated with Clarithromycin, Amoxicillin and Omeprazole. Follow-up stool antigen for Helicobacter pylori was negative. 06/12/21 - Pt complained of abdominal pain, nausea, vomiting and diarrhea for 3-4 days - likely due to viral gastroenteritis/food poisoning. Diarrhea appears to be subsiding. Patient was advised to stop famotidine 20 mg and start omeprazole 20 mg twice daily with resolution of symptoms. 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 Sep, 2022 patient had a negative colonoscopy for FU of colon polyps. 04/29/2023 Continue Famotidine for GERD and Amitiza 8 mg daily for constipation FU in 6 months (FU of GERD, constipation and fatty Medications: Changed From famotidine 20 mg PO DAILY 30 days 30 tabs 1RF T78.40XA - Allergy, unspecified, initial encounter To famotidine 20 mg PO DAILY 90 days 90 tabs 1RF T78.40XA - Allergy, unspecified, initial encounter Refilled lubiprostone 8 mcg PO BID 90 days 180 caps 1RF K59.09 - Other constipation Coding Level of Care Code Est Pt Level 4 (73581) Diagnoses Upper abdominal pain R10.10 Nausea and vomiting R11.2 Fatty liver K76.0 History of adenomatous polyp of colon Z86.010 Chronic constipation K59.09 GERD without esophagitis K21.9 Time Spent (min) 20
[2023-04-29 07:31] VITALS: BP 145/65; PULSE 68; BMI 30.5
== END 2023-04-29 07:59 | disposition home or self-care (01) ==
PROVIDERS: Visit Provider Internal Medicine Gastroenterology
DX: R10.10 Upper abdominal pain, unspecified (principal); R11.2 Nausea with vomiting, unspecified; K76.0 Fatty (change of) liver, not elsewhere classified; Z86.010 Personal history of colon polyps; K59.09 Other constipation; K21.9 Gastro-esophageal reflux disease without esophagitis
CPT/HCPCS: 99214

== ENCOUNTER → 2023-04-29 07:13 | Outpatient (BNVA) | payer OTHER, SELFPAY | PROVIDERS: Visit Provider Internal Medicine Gastroenterology ==

== ENCOUNTER 2023-08-10 08:33 | Outpatient (AMB) | payer OTHER, SELFPAY ==
[2023-08-10 09:03] VITALS: BP 132/86; PULSE 70; O2SAT 95; BMI 30.7
--- NOTE | 2023-08-10 09:03 | MHC.PC.OV ---
Vital Signs 08/10/23 09:03 Height 4 ft 4 in Weight 118 lb BMI 30.7 BP 132/86 Blood Pressure Location Lt brachial Position Sitting Pulse 70 Pulse Source Pulse Oximeter Pulse Oximetry (%) 95 Oxygen Delivery Method Room Air Intake Visit Reasons: PE Medical Records Administrator Required: No Accompanied by: Self / Same As Patient Allergies indomethacin Allergy (Intermediate, Verified 08/10/23 09:27) stomach upset, panic attack metoprolol Adverse Reaction (Intermediate, Verified 08/10/23 09:27) Fatigue tizanidine Adverse Reaction (Intermediate, Verified 08/10/23 09:27) hallucination Medication List - Last Reconciled 08/10/23 by Sean Teresa PA-C cetirizine (Zyrtec) 10 mg PO DAILY 90 days cholecalciferol (vitamin D3) 250 mcg PO 2XW 90 days famotidine 20 mg PO DAILY 90 days fluoxetine 10 mg PO DAILY 90 days lubiprostone 8 mcg PO BID 90 days olopatadine 0.2% 1 drp ophthalmic (eye) DAILY sennosides (senna) 17.2 mg (2 x 8.6 mg) PO DAILY PRN 90 days valacyclovir 2,000 mg (2 x 1 gram) PO Q12H 1 day valsartan 80 mg PO DAILY 90 days Tobacco use date assessed: 02/02/23 Fall risk assessment: No Falls in past year Last assessed Fall Risk: 08/10/23 Dental Screening Dental Screen Date: 08/10/23 Did you have a dental visit in the last 12 months?: Yes Did you have a dental problem in the last 6 months where you did not have access to dental care?: No Was dental information given to patient?: Patient has dentist HPI PE HPI Details Patient is a 63-year-old female here today for annual physical. ?Patient has a past medical history significant for hypertension, fatty liver disease, GERD,. Concern--> has been dealing with a lot of anxiety at work due to staffing issues. .. HTN: Reports her BP at home have been 110s to 120 systolic.? Denies any headaches, shortness of breath, chest discomfort or palpitations. . Vaccine: UTD with flu, COVID, pneumonia and tetanus vaccines. Colonoscopy:? Recently had colonoscopy which was normal, repeat 5 years.. .. Mammo : Needs new Mammo Laboratory Tests 02/02/23 09:52 RBC 4.75 Hgb 13.8 Uric Acid 6.9 H AST 32 H Cholesterol 146 PFSH Medical History HTN (hypertension) Irritation of eye Fatty liver History of adenomatous polyp of colon Chronic constipation History of Helicobacter pylori infection GERD without esophagitis Surgical History History of bilateral cataract extraction History of total abdominal hysterectomy History of laparoscopic cholecystectomy Hx of endoscopy Hx of colonoscopy Family History Father Hypertension Myocardial infarction CAD (coronary artery disease) Mother Hypertension Thyroid disease Family/Other Heart disease Asthma Epilepsy Social History Household Members: Significant Other Housing: Apartment Alcohol intake: never Patient Tobacco Use Status: Never used Tobacco e-Cigarette/Vaping Use: Never Used Second Hand Smoke Exposure: No service: No Current occupational status: employed 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 Cruz Perez, Zita Gillis, Regis Cabello and colleagues, with an educational carmencita from [employer]. Review of Systems Const Denies body aches, Denies chills, Denies excessive sweating, Denies fatigue, Denies fever(s) and Denies headache(s) Eyes Denies blurry vision ENT Denies dysphagia, Denies vertigo, Denies dizziness, Denies headache(s), Denies hearing loss and Denies tinnitus Card Denies chest pain, Denies chest pain with activity, Denies syncope, Denies irregular heart rhythm and Denies dyspnea Resp Denies chest congestion, Denies cough, Denies hemoptysis, Denies dyspnea and Denies wheezing GI Denies abdominal pain, Denies melena, Denies hematochezia, Denies coffee ground emesis, Denies dysphagia, Denies diarrhea, Denies nausea and Denies vomiting Denies urinary frequency, Denies dysuria, Denies urinary hesitancy and Denies urinary urgency Musc Denies arthralgias, Denies limited range of motion, Denies muscle cramps and Denies muscle weakness Skin/Breast Denies rash and Denies skin ulcer Neuro Denies Abnormal speech present, Denies confusion, Denies vertigo, Denies dizziness, Denies syncope, Denies headache(s), Denies memory loss and Denies seizure-like activity Psych Denies anxiety, Denies confusion, Denies depression, Denies memory loss, Denies panic attacks and Denies paranoia Endo Denies excessive sweating, Denies fatigue, Denies flushing, Denies polydipsia and Denies polyuria Aller/Immun Denies wheezing Physical exam (Primary Care) Vital Signs: Last Vital Signs Pulse 70 08/10/23 09:03 BP 132/86 08/10/23 09:03 Pulse Ox 95 08/10/23 09:03 Oxygen Delivery Method Room Air 08/10/23 09:03 BMI result Body Mass Index 30.7 BMI Assessment/Plan discussion: High Tobacco/Smoking Status: Tobacco use Status Tobacco use date assessed 02/02/23 08/10/23 09:05 Patient Tobacco Use Status Never used Tobacco 08/10/23 09:05 e-Cigarette/Vaping Use Never Used 08/10/23 09:05 Thrive Assessment: Date of Thrive Assessment Date Thrive assessed 02/02/23 08/10/23 09:05 Const Other: Obese General: cooperative, comfortable, no acute distress, alert and awake; No confusion Orientation/consciousness: oriented to person, oriented to place, patient oriented x3 and No confusion HENMT Head: Yes normocephalic Ears: external ears normal and TM's normal bilaterally Face and sinus: No sinus tenderness Mouth: Normal oral and palatal mucosa present and tongue normal Teeth and gingiva: dentition normal and gingiva normal Throat: Yes posterior oropharynx normal, Yes tonsils normal and Yes uvula midline Eyes Conjunctivae: conjunctivae normal Sclerae: sclerae normal Pupils: Equal, round and reactive pupils present EOM: EOMs intact bilaterally Direct Ophthalmoscopy: No no photophobia Neck Neck: Yes no lymphadenopathy, No tender and Yes no JVD Thyroid: Thyroid normal Carotids: no bruits Chest Chest palpation & inspection: no tenderness Resp Effort & Inspection: normal respiratory effort, no audible wheezes, not labored and no stridor Auscultation: no crackles, no rales, no rhonchi and no wheezes Cardio Jugular venous distension: no JVD Rate: regular rate, not bradycardic and not tachycardic Rhythm: regular rhythm Bruits: no carotid bruits Peripheral pulses: Peripheral pulses 2+ throughout GI Inspection: Yes normal to inspection, No abdominal wall ecchymosis and No visible herniation Palpation (GI): Soft to palpation, nontender, no guarding, not rigid and No hepatosplenomegaly present Auscultation: normoactive bowel sounds General: Yes no CVA tenderness Back/Spine/Pelvis Back: no CVA tenderness and No back tenderness Cervical Spine: cervical ROM normal Thoracic/Lumbar Spine: thoracic and lumbar spine normal to inspection, straight leg raise negative bilaterally, No thoraco-lumbar ROM limited and No lumbar spinal tenderness Skin Lesions: no lesions Rashes: no rashes Wounds: no wounds Neuro General: oriented to person, oriented to place, patient oriented x3, CN's II-XI intact bilaterally and No confusion Cranial nerves: Yes Equal, round and reactive pupils present and Yes Normal accommodation reflex present Cognition (Neuro): normal cognition Speech: No Abnormal speech present Gait exam (Neuro): Normal gait present Motor exam (neuro): 5/5 motor strength present throughout Extrem Right upper extremity: full ROM; no cyanosis Left upper extremity: full ROM; no cyanosis Right lower extremity: no edema Left lower extremity: no edema Psych Appearance: grossly normal Mental Status: mental status grossly normal Affect: normal affect Attitude: cooperative Thought process: Normal thought process present Office Procedures Flu Questionnaire Does the patient have a severe egg allergy?: No Does the patient have severe life threatening allergies?: No Does the patient have a fever or illness today?: No Has the patient ever had Guillain-Vanzant Syndrome?: No Has the patient ever had any past reaction to a flu shot?: No Immunizations flu vacc [id number] 6mos up(PF) 60 mcg(15 mcgx4)/0.5 mL IM syringe Performing Provider: Sean Teresa PA-C Performing Location: [facility] Administered by: ROSSY Jacobs on 08/10/23 09:26 Dose Route Admin Location Dispensed Lot Number Expiration Date NDC Press Operator Automatic 0.5 mL IM Left Deltoid 0.5 mL [id number] 03/12/24 14372-226-52 [employer] VIS Given Date VIS Provided VIS Publication Date 08/10/23 Single Vaccine 21 Eligibility Eligibility Date Funding Source Not [facility] Eligible 08/10/23 Private Assessment and Plan Assessment & Plan (1) Annual physical exam: Code(s): Z00.00 - Encounter for general adult medical examination without abnormal findings (2) HTN (hypertension): Code(s): I10 - Essential (primary) hypertension Qualifiers: Hypertension type: essential hypertension Qualified Code(s): I10 - Essential (primary) hypertension Plan: Patient's blood pressure acceptable today in office. Will continue her current dose of valsartan with goal blood pressure to be below 140/90 (3) GERD without esophagitis: Comment: Continue omeprazole 20 mg once daily. Patient was treated with triple therapy for Helicobacter pylori consisting of clarithromycin, amoxicillin and omeprazole for 10 days. Follow-up stool for H pylori antigen was negative. Code(s): K21.9 - Gastro-esophageal reflux disease without esophagitis Plan: Patient continues on 20 mg of famotidine (4) Obese: Code(s): E66.9 - Obesity, unspecified Qualifiers: Body mass index: BMI 32.0-32.9 Obesity classification: adult class 1 (BMI 30 - 34.9) Obesity type: due to excess calories Serious obesity comorbidity presence: without serious comorbidity Qualified Code(s): E66.09 - Other obesity due to excess calories; Z68.32 - Body mass index [BMI] 32.0-32.9, adult Plan: Patient does understand her BMI is over 30 will work on being more physically active and adapting to better eating habits to reduce her weight (5) Anxiety: Code(s): F41.9 - Anxiety disorder, unspecified Plan: She reports her anxiety has been elevated as of late due to her stressful work environment. He is not interested in increasing her SSRI therapy dose at this time. Not interested in mental health therapy at this time either. (6) Gout: Code(s): M10.9 - Gout, unspecified Qualifiers: Chronicity: chronic Gout etiology: idiopathic Gout site: ankle Laterality: right Presence of tophus: without tophus Qualified Code(s): M1A.0710 - Idiopathic chronic gout, right ankle and foot, without tophus (tophi) Plan: Her casted levels continue to be high. She has been using [id number] supplement to reduce her uric acid level per will recheck. She has been trying to follow a low purine diet.. Has not had any recent gout flares. (7) Breast cancer screening: Code(s): Z12.39 - Encounter for other screening for malignant neoplasm of breast Qualifiers: Breast cancer screening modality: mammogram Qualified Code(s): Z12.31 - Encounter for screening mammogram for malignant neoplasm of breast Orders: Orders Influenza [id number] Immunization 08/10/23 Z23 - Encounter for immunization Uric Acid 08/10/23 M1A.0710 - Idiopathic chronic gout, right ankle and foot, without tophus (tophi) Microalbumin, Random (w Creat) 08/10/23 I10 - Essential (primary) hypertension Comprehensive [place]. Panel Fast 08/10/23 I10 - Essential (primary) hypertension Lipid Panel 08/10/23 I10 - Essential (primary) hypertension MM screening mammo BI Today Z12.31 - Encounter for screening mammogram for malignant neoplasm of breast Complete Blood Count no Diff 08/10/23 I10 - Essential (primary) hypertension Medications: Refilled fluoxetine 10 mg PO DAILY 90 tabs 2RF 90 days N95.1 - Menopausal and female climacteric states famotidine 20 mg PO DAILY 90 tabs 1RF 90 days T78.40XA - Allergy, unspecified, initial encounter cholecalciferol (vitamin D3) 250 mcg PO 2XW 26 caps 1RF 90 days E55.9 - Vitamin D deficiency, unspecified lubiprostone 8 mcg PO BID 180 caps 1RF 90 days K59.09 - Other constipation olopatadine 0.2% 1 drp ophthalmic (eye) DAILY 2.5 mL 2RF H57.89 - Other specified disorders of eye and adnexa sennosides (senna) Take 2 capsules by mouth at bedtime as needed for constipation 17.2 mg (2 x 8.6 mg) PO DAILY PRN 90 caps 1RF constipation 90 days valacyclovir 2,000 mg (2 x 1 gram) PO Q12H 4 tabs 0RF 1 day B00.1 - Herpesviral vesicular dermatitis valsartan 80 mg PO DAILY 90 tabs 2RF 90 days I10 - Essential (primary) hypertension Coding Level of Care Code Est Pt Prev Care 40-64y(29641) Diagnoses Annual physical exam Z00.00 Essential hypertension I10 Hypertension type: essential hypertension GERD without esophagitis K21.9 Class 1 obesity due to excess calories without serious comorbidity with body mass index (BMI) of 32.0 to 32.9 in adult E66.09; Z68.32 Body mass index: BMI 32.0-32.9 Obesity classification: adult class 1 (BMI 30 - 34.9) Obesity type: due to excess calories Serious obesity comorbidity presence: without serious comorbidity Anxiety F41.9 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
== END 2023-08-10 09:52 | disposition home or self-care (01) ==
PROVIDERS: PCP Physician Assistant; Visit Provider Physician Assistant
DX: Z23 Encounter for immunization (principal)
CPT/HCPCS: 90471; 90686; 99396

== ENCOUNTER 2023-10-28 07:05 | Outpatient (AMB) | payer OTHER, SELFPAY ==
--- NOTE | 2023-10-28 07:42 | A.OFFVIS_ITS ---
Intake Vital Signs 10/28/23 07:47 Height 4 ft 4 in Weight 120 lb 1 oz BMI 31.2 BP 142/61 H Blood Pressure Location Lt brachial Position Sitting Pulse 72 Pulse Oximetry (%) 98 Oxygen Delivery Method Room Air Intake Visit Reasons: 6 Month Follow Up Intake Note: Patient follow up Constipation Patient cc: heartburn m still with constipation come and go and problems when she is swallowing on and off. Denies any other GI problems or issues. Carbonator Required: No Accompanied by: Spouse Allergies indomethacin Allergy (Intermediate, Verified 10/28/23 07:43) stomach upset, panic attack metoprolol Adverse Reaction (Intermediate, Verified 10/28/23 07:43) Fatigue tizanidine Adverse Reaction (Intermediate, Verified 10/28/23 07:43) hallucination Medication List - Last Reconciled 10/28/23 by Frederic Garrison MD cetirizine (Zyrtec) 10 mg PO DAILY 90 days cholecalciferol (vitamin D3) 250 mcg PO 2XW 90 days famotidine 20 mg PO DAILY 90 days fluoxetine 10 mg PO DAILY 90 days lubiprostone 8 mcg PO BID 90 days olopatadine 0.2% 1 drp ophthalmic (eye) DAILY sennosides (senna) 17.2 mg (2 x 8.6 mg) PO DAILY PRN 90 days valacyclovir 2,000 mg (2 x 1 gram) PO Q12H 1 day valsartan 80 mg PO DAILY 90 days HPI 6 Month Follow Up HPI Details GI CLINIC VISIT FOR THIS 63-YEAR-OLD FEMALE FOR FU of FATTY LIVER WITH ELEVATED LFTS AND CHRONIC CONSTIPATION. Pt is status post cholecystectomy. ? CHRONIC ILLNESSES:?shoulder pain, muscle spasms, urinary incontinence, osteoarthritis, DEPRESSION, CONSTIPATION, LEUKOCYTOSIS. ?LABS IN [facility]:03/18/20 REVIEWED MILDLY ELEVATED LFTS WITH AST OF 45, ALT 40, ALKALINE PHOSPHATASE 107, HEPATITIS-B AND C SEROLOGIES WERE NEGATIVE IN THE PAST.? ? Stool test was negative for Helicobacter pylori. ?IMAGING STUDIES: 08/2017 ABDOMINAL ULTRASOUND SHOWED: ? IMPRESSION: ? Echogenic liver probably representing fatty infiltration. Otherwise unremarkable exam. ?ENDOSCOPIC STUDIES: 10/05/22 COLONOSCOPY SHOWED: No polyps were detected. Patchy erythema in the right colon with scattered ulcers with some heme - random biopsies were obtained. (Pt denied NSAID or aspirin use) Moderate diverticulosis seen in the sigmoid colon Moderate hemorrhoids on retroflexed exam. Plan:? Repeat Colonoscopy in 5 years if biopsies are normal. random biopsies were normal TODAY'S VISIT: Patient follow up Constipation Patient cc: heartburn m still with constipation come and go and problems when she is swallowing on and off. Denies any other GI problems or issues. Pt is accompanied by her . Continues to have problems with heartburn and takes Omeprazole three times a week. Has a change in insurance ([employer] and has $ 8500 deductable) Has a BM daily Pt reports gaining a few lbs over the holidays. PAST VISIT: Lost 8 lbs after she had a bad gout attack Started to cut back on her caloric and sugar intake and foods which cause inflammation Unable to work for 2 days and treated with Prednisone for the pain. Taking a natural medication to control the uric acid (Quercitin) GERD controlled with Famotidine and takes Omperazole prn for breakthrough symptoms Continues to have intermittent constipation Taking zuleima and flax seeds and drinking a lot of water. Colonoscopy results reviewed. Constipation is better with Lubiprostone. Takes Omeprazole prn and occasionally Famotidine for GERD Accompanied by her (Got end of March,) Had bad heartburn on 04/20/22 after eating [employer]. Takes Omeprazole prn and advised to take it daily. Not straining too much since starting Lubiprostone. Intermittent episodes of pain during swallowing - mostly solids. Denies food getting stuck. It goes down and she feels some pressure throughout the esophagus while swallowing Has been eating soft foods and chewing it more. Always has heartburn especially at night. Taking Omeprazole and famotidine prn and not daily. Elevates HOB with pillows and advised to use a wedge. Always having issues with the constipation which effects her hemorrhoids. BMs are hard and associated with straining and causes her hemorrhoids to come out. Complains of 6-7/10 cramping and burning upper abdominal pain radiating to the back since 06/09/21 Has nausea, vomiting and diarrhea Complains of chills and denies fever. Has not been able to eat.? Has nausea after she eats and has to go to the bathroom. Taking crackers and joseph renee. Diarrhea appears to be resolving today. Admits to being anxious since her daughter is not talking to her. Due for 2nd dose of COVID vaccine on 12/31/20 ? Had similar pain last year and ended up vomiting in the ER at [facility] Treated with medications for nausea with improvement in her symptoms. ? Doing ok besides the COVID issue. ? She was having problems with gout PFSH Medical History HTN (hypertension) Irritation of eye Fatty liver History of adenomatous polyp of colon Chronic constipation History of Helicobacter pylori infection GERD without esophagitis Surgical History History of bilateral cataract extraction History of total abdominal hysterectomy History of laparoscopic cholecystectomy Hx of endoscopy Hx of colonoscopy Family History Father Hypertension Myocardial infarction CAD (coronary artery disease) Mother Hypertension Thyroid disease Family/Other Heart disease Asthma Epilepsy Social History Household Members: Significant Other Housing: Apartment Alcohol intake: never Patient Tobacco Use Status: Never used Tobacco e-Cigarette/Vaping Use: Never Used Second Hand Smoke Exposure: No service: No Current occupational status: employed 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 Cognitive needs: No Hearing needs: No Vision needs: Yes Review of Systems Const All systems reviewed & are unremarkable except as noted in HPI and below Physical Exam Const General: healthy appearing and no acute distress Nutritional Appearance: obese Orientation/consciousness: patient oriented x3 Limitations: no limitations HEENT Head: Yes normal to inspection Ears: hearing grossly normal bilaterally Eyes Sclerae: sclerae normal Pupils: Equal, round and reactive pupils present Neck Neck: Yes normal visual inspection Chest Chest palpation & inspection: normal inspection of the chest Resp Effort & Inspection: normal respiratory effort Auscultation: clear to auscultation bilaterally Cardio Palpation: normal PMI Rate: regular rate Rhythm: regular rhythm Heart sounds: S1 normal heart sound present, S2 normal heart sound present and no murmurs GI Palpation (GI): Soft to palpation, nontender and No hepatosplenomegaly present Auscultation: normal bowel sounds Rectal Exam - Female: deferred Skin General skin exam: no rashes or lesions noted Neuro General: patient oriented x3, gait normal and moves all extremities Cranial nerves: Yes Equal, round and reactive pupils present Psych Appearance: grossly normal Mental Status: mental status grossly normal Assessment & Plan Assessment & Plan (1) Upper abdominal pain: Code(s): R10.10 - Upper abdominal pain, unspecified (2) Nausea and vomiting: Code(s): R11.2 - Nausea with vomiting, unspecified (3) Fatty liver: Code(s): K76.0 - Fatty (change of) liver, not elsewhere classified (4) History of adenomatous polyp of colon: Comment: Three adenomatous polyps were removed during colonoscopy in Sep, 2019. 10/05/22 COLONOSCOPY SHOWED: No polyps were detected. Patchy erythema in the right colon with scattered ulcers with some heme - random biopsies were obtained. (Pt denied NSAID or aspirin use) Moderate diverticulosis seen in the sigmoid colon Moderate hemorrhoids on retroflexed exam. Plan: Repeat Colonoscopy in 5 years Code(s): Z86.010 - Personal history of colonic polyps (5) GERD without esophagitis: Comment: Continue omeprazole 20 mg once daily. Patient was treated with triple therapy for Helicobacter pylori consisting of clarithromycin, amoxicillin and omeprazole for 10 days. Follow-up stool for H pylori antigen was negative. Code(s): K21.9 - Gastro-esophageal reflux disease without esophagitis (6) Chronic constipation: Code(s): K59.09 - Other constipation Plan 63 YF with shoulder pain, muscle spasms, urinary incontinence, osteoarthritis, DEPRESSION, CONSTIPATION, LEUKOCYTOSIS followed in GI for GERD, epigastric pain, chronic constipation, fatty liver related to obesity. Sep, 2019 Upper endoscopy showed nodular gastritis and gastric biopsies were positive for H pylori. Three adenomatous polyps were removed during same-day colonoscopy. Repeat colonoscopy is advised in 3 years and action was set in [facility]. Helicobacter pylori (H. pylori) infection - pt was treated with Clarithromycin, Amoxicillin and Omeprazole. Follow-up stool antigen for Helicobacter pylori was negative. 06/12/21 - Pt complained of abdominal pain, nausea, vomiting and diarrhea for 3-4 days - likely due to viral gastroenteritis/food poisoning. Diarrhea appears to be subsiding. Patient was advised to stop famotidine 20 mg and start omeprazole 20 mg twice daily with resolution of symptoms. 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 Sep, 2022 patient had a negative colonoscopy for FU of colon polyps. 04/29/2023 Continue Famotidine for GERD and Amitiza 8 mg daily for constipation 10/28/23 Continues to have problems with heartburn and takes Omeprazole three times a week. Has a change in insurance ([employer] and has $ 8500 deductable) Pt advised to take Famotidine 20 mg twice daily and if it is cheaper and GERD symptoms are well-controlled to DC omeprazole. FU in 8 months (FU of GERD, constipation and fatty liver Medications: New famotidine 20 mg PO BID 90 days 180 tabs 3RF K21.9 - Gastro-esophageal reflux disease without esophagitis Coding Level of Care Code Est Pt Level 3 (95927) Diagnoses Upper abdominal pain R10.10 Nausea and vomiting R11.2 Fatty liver K76.0 History of adenomatous polyp of colon Z86.010 GERD without esophagitis K21.9 Chronic constipation K59.09 Time Spent (min) 16
[2023-10-28 07:47] VITALS: BP 142/61; PULSE 72; O2SAT 98; BMI 31.2
== END 2023-10-28 12:03 | disposition home or self-care (01) ==
PROVIDERS: PCP Physician Assistant; Visit Provider Internal Medicine Gastroenterology
DX: R10.10 Upper abdominal pain, unspecified (principal); R11.2 Nausea with vomiting, unspecified; K76.0 Fatty (change of) liver, not elsewhere classified; Z86.010 Personal history of colon polyps; K21.9 Gastro-esophageal reflux disease without esophagitis; K59.09 Other constipation
CPT/HCPCS: 99213

== ENCOUNTER → 2023-10-28 07:05 | Outpatient (BNVA) | payer SELFPAY | PROVIDERS: PCP Physician Assistant; Visit Provider Internal Medicine Gastroenterology ==

== ENCOUNTER 2024-01-18 12:28 | Outpatient (AMB) | payer OTHER, SELFPAY ==
--- NOTE | 2024-01-18 12:46 | AM.OFFVISNUR ---
Intake Intake Visit Reasons: PPD Implant/Hep B vaccine Allergies indomethacin Allergy (Intermediate, Verified 10/28/23 07:43) stomach upset, panic attack metoprolol Adverse Reaction (Intermediate, Verified 10/28/23 07:43) Fatigue tizanidine Adverse Reaction (Intermediate, Verified 10/28/23 07:43) hallucination Immunizations Recombivax HB (PF) 10 mcg/mL intramuscular suspension Performing Provider: Sean Teresa PA-C [facility] Administered by: Angelica Mcintosh RN on 01/18/24 12:46 Dose Route Admin Location Dispensed Lot Number Expiration Date NDC Recruitment Assistant 1 mL IM Left Deltoid 1 mL [id number] 08/19/24 86905-762-18 [employer]ert[employer] VIS Given Date VIS Provided VIS Publication Date 01/18/24 Single Vaccine 23 Eligibility Eligibility Date Funding Source Not [facility] Eligible 01/18/24 Private Coding Assessment & Plan Assessment & Plan Orders: Orders Hepatitis B Adult Immunization Today Z23 - Encounter for immunization Medications: New Recombivax HB (PF) (hepatitis B virus vacc.rec(PF)) 1.0 mL IM ONCE 1 mL 0RF NS Z23 - Encounter for immunization
--- NOTE | 2024-01-18 12:48 | AM.OFFVISNUR ---
Intake Intake Visit Reasons: PPD Implant/Hep B vaccine Allergies indomethacin Allergy (Intermediate, Verified 10/28/23 07:43) stomach upset, panic attack metoprolol Adverse Reaction (Intermediate, Verified 10/28/23 07:43) Fatigue tizanidine Adverse Reaction (Intermediate, Verified 10/28/23 07:43) hallucination Office Meds tuberculin PPD 5 tub. unit/0.1 mL intradermal injection solution Performing Provider: Sean Teresa PA-C Performing Location: [facility] Administered by: Angelica Mcintosh RN on 01/18/24 12:49 Dose Route Admin Location Dispensed Lot Number Expiration Date [facility] Marking Room Supervisor 0.1 mL intradermal left forearm 0.1 mL [id number] 01/10/27 04830-549-96 [employer] Immunizations Recombivax HB (PF) 10 mcg/mL intramuscular suspension Performing Provider: Sean Teresa PA-C Performing Location: [facility] Administered by: Angelica Mcintosh RN on 01/18/24 12:46 Dose Route Admin Location Dispensed Lot Number Expiration Date [facility] Marking Room Supervisor 1 mL IM Left Deltoid 1 mL [id number] 08/19/24 81554-757-69 [facility] Given Date VIS Provided VIS Publication Date 01/18/24 Single Vaccine 23 Eligibility Eligibility Date Funding Source Not [facility] Eligible 01/18/24 Private Coding Assessment & Plan Assessment & Plan Orders: Orders Hepatitis B Adult Immunization Today Z23 - Encounter for immunization AMB PPD Planted Today Z11.1 - Encounter for screening for respiratory tuberculosis Medications: New tuberculin PPD 0.1 mL intradermal ONCE 0.1 mL 0RF Z11.1 - Encounter for screening for respiratory tuberculosis
== END 2024-01-18 12:44 | disposition home or self-care (01) ==
PROVIDERS: PCP Physician Assistant; Visit Provider Physician Assistant
DX: Z23 Encounter for immunization (principal); Z11.1 Encounter for screening for respiratory tuberculosis
CPT/HCPCS: 86580; 90471; 90746

== ENCOUNTER 2024-02-08 08:16 | Outpatient (AMB) | payer OTHER, SELFPAY ==
--- NOTE | 2024-02-08 08:38 | A.OFFPC_ITS ---
Vital Signs 02/08/24 08:39 Height 4 ft 4 in Weight 126 lb BMI 32.8 BP 142/96 H Blood Pressure Location Lt brachial Position Sitting Intake Visit Reasons: f/u HTN Intake Note: Patient here for a follow up HTN [employer] Founder Required: No Accompanied by: Self / Same As Patient Allergies indomethacin Allergy (Intermediate, Verified 02/08/24 08:46) stomach upset, panic attack metoprolol Adverse Reaction (Intermediate, Verified 02/08/24 08:46) Fatigue tizanidine Adverse Reaction (Intermediate, Verified 02/08/24 08:46) hallucination Medication List - Last Reconciled 02/08/24 by Sean Teresa PA-C baclofen 10 mg PO BID 7 days cetirizine (Zyrtec) 10 mg PO DAILY 90 days cholecalciferol (vitamin D3) 250 mcg PO 2XW 90 days famotidine 20 mg PO BID 90 days fluoxetine 10 mg PO DAILY 90 days lubiprostone 8 mcg PO BID 90 days olopatadine 0.2% 1 drp ophthalmic (eye) DAILY sennosides (senna) 17.2 mg (2 x 8.6 mg) PO DAILY PRN 90 days valacyclovir 2,000 mg (2 x 1 gram) PO Q12H 1 day valsartan 80 mg PO DAILY 90 days Tobacco use date assessed: 02/08/24 Fall risk assessment: No Falls in past year Last assessed Fall Risk: 02/08/24 Dental Screening Dental Screen Date: 02/08/24 Did you have a dental visit in the last 12 months?: Yes Did you have a dental problem in the last 6 months where you did not have access to dental care?: No Was dental information given to patient?: Patient has dentist HPI f/u HTN HPI Details Patient is a 63-year-old female here today for a follow-up . ?Patient has a past medical history significant for hypertension, fatty liver disease, GERD,. Concern--> Still having an issue with sleep, has been using melatonin though has not been helpful. She reports having racing thoughts and feeling of impending doom before she sleeps. She is willing to try medication to help her sleep. .. HTN: Blood pressure in office today slightly elevated. She believes this is due to stress. Has recently started a new job. She does not regularly check her blood pressure at home. Reports her BP at home have been 110s to 120 systolic.? Denies any headaches, shortness of breath, chest discomfort or palpitations. [facility] Medical History HTN (hypertension) Irritation of eye Fatty liver History of adenomatous polyp of colon Chronic constipation History of Helicobacter pylori infection GERD without esophagitis Surgical History History of bilateral cataract extraction History of total abdominal hysterectomy History of laparoscopic cholecystectomy Hx of endoscopy Hx of colonoscopy Family History Father Hypertension Myocardial infarction CAD (coronary artery disease) Mother Hypertension Thyroid disease Family/Other Heart disease Asthma Epilepsy Social History Household Members: Significant Other Housing: Apartment Alcohol intake: never Patient Tobacco Use Status: Never used Tobacco e-Cigarette/Vaping Use: Never Used Second Hand Smoke Exposure: No service: No Current occupational status: employed 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 1. Little interest or pleasure in doing things: not at all 2. Feeling down, depressed, or hopeless: several days 3. Trouble falling or staying asleep, or sleeping too much: nearly every day 4. Feeling tired or having little energy: several days 5. Poor appetite or overeating: not at all 6. Feeling bad about yourself - or that you are a failure or have let yourself or your family down: not at all 7. Trouble concentrating on things, such as reading the newspaper or watching television: not at all 8. Moving or speaking so slowly that other people could have noticed. Or the opposite - being so fidgety or restless that you have been moving around a lot more than usual: not at all 9. Thoughts that you would be better off or of hurting yourself in some way: not at all Total score: 5 Depression Screening Interpretation: Positive Depression Screening Follow-up: Existing condition and Declines treatment Depression Screening Done: Yes 22927 - PHQ-9 Billing: Yes Source: Developed by Drs. Cruz Perez, Zita Gillis, Regis Cabello and colleagues, with an educational carmencita from [employer]. Thrive Questionnaire Date Thrive assessed: 02/02/23 FIOR-7 AMB Questionnaire FIOR-7 Date FIOR - 7 assessed: 02/08/24 Feeling nervous, anxious, or on edge: 3 = Nearly every day Not being able to stop or control worryin = Not at all Worrying too much about different things: 3 = Nearly every day Trouble relaxin = Several days Being so restless that it is hard to sit still: 0 = Not at all Becoming easily annoyed or irritable: 1 = Several days Feeling afraid as if something awful might happen: 0 = Not at all Total FIOR-7 score (0-4 normal; 5-9 mild; 10-14 moderate; 15-21 severe): 8 Source: Developed by Drs. Cruz Perez, Zita Gillis, Regis Cabello and colleagues, with an educational carmencita from [employer]. FIOR-7 Assessment Billing FIOR-7 Assessment Tool: FIOR-7 Assessment 22353 Review of Systems Const Denies headache(s) Eyes Denies loss of vision ENT Denies vertigo, Denies dizziness, Denies headache(s) and Denies sore throat Card Denies chest pain, Denies leg edema and Denies lightheadedness Resp Denies cough, Denies hemoptysis and Denies wheezing GI Denies abdominal pain, Denies melena, Denies constipation, Denies diarrhea and Denies vomiting Denies urinary frequency, Denies dysuria and Denies urinary urgency Musc Denies arthralgias, Denies joint swelling, Denies numbness and Denies tingling Neuro Denies Abnormal speech present, Denies behavioral changes, Denies vertigo, Denies dizziness, Denies headache(s), Denies loss of vision, Denies memory loss, Denies numbness and Denies tingling Psych Reports anxiety, Denies behavioral changes, Denies depression, Denies memory loss and Denies panic attacks Dany/Lymph Denies easy bleeding and Denies easy bruising Aller/Immun Denies wheezing Physical exam (Primary Care) Vital Signs: Last Vital Signs BP 142/96 H 02/08/24 08:39 BMI result Body Mass Index 32.8 Tobacco/Smoking Status: Tobacco use Status Tobacco use date assessed 02/08/24 02/08/24 08:46 Patient Tobacco Use Status Never used Tobacco 02/08/24 08:39 e-Cigarette/Vaping Use Never Used 02/08/24 08:39 PHQ-9: PHQ-9 Score PHQ-9: Total score 5 02/08/24 09:07 Depression Screening Interpretation: Positive Depression Screening Follow-up: Existing condition and Declines treatment Thrive Assessment: Date of Thrive Assessment Date Thrive assessed 02/02/23 02/08/24 08:39 Const General: healthy appearing, no acute distress, alert and awake Nutritional Appearance: well nourished Orientation/consciousness: oriented to person, oriented to place and oriented to time HENMT Ears: TM's normal bilaterally General nose exam: Normal nasal mucous membranes and turbinates present Eyes Conjunctivae: conjunctivae normal Sclerae: sclerae normal Pupils: Equal, round and reactive pupils present Neck Neck: Yes no lymphadenopathy and Yes no JVD Thyroid: Thyroid normal Carotids: no bruits Resp Effort & Inspection: normal respiratory effort and not tachypneic Auscultation: no crackles, no rales, no rhonchi and no wheezes Cardio Rate: regular rate Rhythm: regular rhythm Heart sounds: no murmurs and normal S1 and S2 GI Palpation (GI): Soft to palpation, nontender, no hepatomegaly and no splenomegaly Auscultation: normal bowel sounds Skin General skin exam: no rashes or lesions noted and dry skin Neuro General: oriented to person, oriented to place and oriented to time Cranial nerves: Yes Equal, round and reactive pupils present Speech: No Abnormal speech present Gait exam (Neuro): Normal gait present Motor exam (neuro): no tremor noted Extrem Right upper extremity: full ROM Left upper extremity: full ROM Right lower extremity: full ROM; no edema Left lower extremity: full ROM; no edema Psych Mental Status: mental status grossly normal Speech and movement: Normal speech and movement present Affect: normal affect Attitude: cooperative Thought process: Normal thought process present Assessment and Plan Assessment & Plan (1) HTN (hypertension): Code(s): I10 - Essential (primary) hypertension Qualifiers: Hypertension type: essential hypertension Qualified Code(s): I10 - Essential (primary) hypertension Plan: Patient's blood pressure slightly elevated today in office. She does not monitor blood pressure at home and will start doing so. If consistently above 140/90 will consider increasing her valsartan dose. . Will continue her current dose of valsartan with goal blood pressure to be below 140/90 (2) GERD without esophagitis: Comment: Continue omeprazole 20 mg once daily. Patient was treated with triple therapy for Helicobacter pylori consisting of clarithromycin, amoxicillin and omeprazole for 10 days. Follow-up stool for H pylori antigen was negative. Code(s): K21.9 - Gastro-esophageal reflux disease without esophagitis Plan: Patient continues on 20 mg of famotidine (3) Anxiety: Code(s): F41.9 - Anxiety disorder, unspecified Plan: Patient's FIOR-7 score positive for anxiety which has been existing condition for her. She has recently started a new job. . She is interested in starting a medication for sleep. Not interested in mental health therapy at this time either. (4) Gout: Code(s): M10.9 - Gout, unspecified Qualifiers: Chronicity: chronic Gout etiology: idiopathic Gout site: ankle Laterality: right Presence of tophus: without tophus Qualified Code(s): M1A.0710 - Idiopathic chronic gout, right ankle and foot, without tophus (tophi) Plan: Recent uric acid level slightly elevated. She continues to follow low purine diet and tries to increase her water intake Has not had any recent gout flares. (5) Insomnia: Code(s): G47.00 - Insomnia, unspecified Qualifiers: Insomnia type: primary Qualified Code(s): F51.01 - Primary insomnia Plan: As per HPI patient still suffers with anxiety before bed. She is willing to try trazodone before bed to help her sleep. 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
[2024-02-08 08:39] VITALS: BP 142/96; BMI 32.8
== END 2024-02-08 09:09 | disposition home or self-care (01) ==
PROVIDERS: PCP Physician Assistant; Visit Provider Physician Assistant
DX: I10 Essential (primary) hypertension (principal); K21.9 Gastro-esophageal reflux disease without esophagitis; F41.9 Anxiety disorder, unspecified; M1A.0710 Idiopathic chronic gout, right ankle and foot, without tophus (tophi); F51.01 Primary insomnia; M13.0 Polyarthritis, unspecified
CPT/HCPCS: 99214

== ENCOUNTER 2024-02-18 08:09 | Outpatient (AMB) | payer OTHER, SELFPAY ==
--- NOTE | 2024-02-18 08:35 | AM.OFFVISNUR ---
Intake Intake Visit Reasons: Hep B 2nd dose Allergies indomethacin Allergy (Intermediate, Verified 02/08/24 08:46) stomach upset, panic attack metoprolol Adverse Reaction (Intermediate, Verified 02/08/24 08:46) Fatigue tizanidine Adverse Reaction (Intermediate, Verified 02/08/24 08:46) hallucination Coding Assessment & Plan Assessment & Plan Orders: Orders Hepatitis B Adult Immunization Today Z23 - Encounter for immunization Medications: New Recombivax HB (PF) (hepatitis B virus vacc.rec(PF)) 1.0 mL IM ONCE 1 mL 0RF NS Z23 - Encounter for immunization
--- NOTE | 2024-02-18 08:44 | AM.OFFVISNUR ---
Intake Intake Visit Reasons: Hep B 2nd dose Allergies indomethacin Allergy (Intermediate, Verified 02/08/24 08:46) stomach upset, panic attack metoprolol Adverse Reaction (Intermediate, Verified 02/08/24 08:46) Fatigue tizanidine Adverse Reaction (Intermediate, Verified 02/08/24 08:46) hallucination Immunizations Recombivax HB (PF) 10 mcg/mL intramuscular suspension Performing Provider: Sean Teresa PA-C [facility] Administered by: Kelsea Terry RN on 02/18/24 08:45 Dose Route Admin Location Dispensed Lot Number Expiration Date [facility] Metallurgist Process 1 mL IM Left Deltoid 1 mL [id number] 08/19/24 60825-157-77 [employer] & D VIS Given Date VIS Provided VIS Publication Date 02/18/24 Single Vaccine 23 Eligibility Eligibility Date Funding Source Not [facility] Eligible 02/18/24 Private Coding Assessment & Plan Assessment & Plan Orders: Orders Hepatitis B Adult Immunization Today Z23 - Encounter for immunization Medications: New Recombivax HB (PF) (hepatitis B virus vacc.rec(PF)) 1.0 mL IM ONCE 1 mL 0RF NS Z23 - Encounter for immunization
== END 2024-02-18 08:49 | disposition home or self-care (01) ==
PROVIDERS: PCP Physician Assistant; Visit Provider Physician Assistant
DX: Z23 Encounter for immunization (principal)
CPT/HCPCS: 90471; 90746

== ENCOUNTER 2024-03-04 07:41 | Outpatient (REF) | payer OTHER, SELFPAY ==
[2024-03-04 08:41] LABS: Hematocrit 41.9 % (37.0-47.0); Hemoglobin 13.8 g/dl (12.0-16.0); Mean Corpuscular HGB Conc 32.9 g/dl (31.0-35.0); Mean Corpuscular Hemoglobin 29.3 pg (27.0-33.0); Mean Platelet Volume 9.8 fL (9.4-12.3); Platelet Count 364 X10*3/uL (160-400); Red Blood Count 4.71 X10*6/uL (4.20-5.50); Red Cell Distribution Width 12.9 % (11.0-16.0)
[2024-03-04 09:04] LABS: Alanine Aminotransferase 32 U/L (0-31); Albumin Level 4.3 g/dL (3.5-5.0); Alkaline Phosphatase 86 U/L (39-117); Anion Gap 12 (12-20); Aspartate Amino Transferase 33 U/L (5-31); Bilirubin Total 0.5 mg/dL (0.0-1.0); Blood Urea Nitrogen 15 mg/dL (9-16); Calcium 9.6 mg/dL (8.4-10.2); Carbon Dioxide 26 mmol/L (22-29); Chloride 109 mmol/L (96-108); Cholesterol 145 mg/dL (<200); Estimated Glomerular Filt Rate > 60; Glucose Fasting 101 mg/dL (60-99); HDL Cholesterol 52 mg/dL (>40); LDL Cholesterol Calculated 76 mg/dL (<100); Potassium 4.2 mmol/L (3.3-5.1); Sodium 143 mmol/L (135-145); Total Protein 7.8 g/dL (6.5-8.0); Triglycerides 85 mg/dL (<150); Uric Acid 6.2 mg/dL (2.4-5.7)
[2024-03-04 09:06] LABS: Creatinine Urine 95.49 mg/dL; Microalbum/Creatinine Ratio Ur 9.4 ug/mg cr (<30)
== END 2024-03-04 07:42 | disposition home or self-care (01) ==
LOC: HO.LAB 07:41
PROVIDERS: PCP Physician Assistant; Visit Provider Physician Assistant
DX: I10 Essential (primary) hypertension (principal); M1A.0710 Idiopathic chronic gout, right ankle and foot, without tophus (tophi)
CPT/HCPCS: 36415; 80053; 80061; 82043; 82570; 84550; 85027

== ENCOUNTER 2024-06-03 07:59 | Outpatient (REF) | payer OTHER, SELFPAY ==
--- NOTE | ~2024-06-03 | MM_ITS ---
EXAMINATION: MM SCREENING DIGITAL BREAST TOMOSYNTHESIS, BILATERAL CLINICAL INFORMATION: Screening. Asymptomatic. COMPARISON: Mammography: Comparison is made with available priors TECHNIQUE: Digital breast mammography with tomosynthesis is performed in both the craniocaudal and mediolateral oblique views along with computer-aided detection (CAD). FINDINGS: The breasts are heterogeneously dense, which may obscure small masses (ACR BI-RADS breast composition Category c). There are no significant masses, abnormal calcifications, or other abnormalities. MM/MM tomosynthesis screening BI IMPRESSION: No mammographic evidence of malignancy. ASSESSMENT: BI-RADS BI-RADS 1 - Negative RECOMMENDATION: Routine annual mammography screening. 1 year F/U This examination should not preclude the clinical evaluation of a suspicious palpable abnormality. This patient's information was entered into a reminder system with a target due date for their next mammogram. Electronically signed by: Sabine Hernández DO 06/15/2024 08:55 AM EDT
== END 2024-06-03 08:00 | disposition home or self-care (01) ==
LOC: HO.MAMMO 07:59
PROVIDERS: PCP Physician Assistant; Visit Provider Physician Assistant
DX: Z12.31 Encounter for screening mammogram for malignant neoplasm of breast (principal)
CPT/HCPCS: 77063; 77067

== ENCOUNTER → 2024-06-03 08:01 | Outpatient (BNV) | payer OTHER, SELFPAY | PROVIDERS: PCP Physician Assistant; Visit Provider Internal Medicine | DX: Z12.31 Encounter for screening mammogram for malignant neoplasm of breast (principal) | CPT/HCPCS: 77063; 77067 ==

== ENCOUNTER 2024-06-29 07:29 | Outpatient (AMB) | payer OTHER, SELFPAY ==
--- NOTE | 2024-06-29 07:33 | A.OFFVIS_ITS ---
Vital Signs 06/29/24 07:43 Height 4 ft 4 in Weight 125 lb BMI 32.5 BP 136/63 Blood Pressure Location Lt brachial Position Sitting Pulse 68 Intake Visit Reasons: 8 month follow up Intake Note: Patient 8 month follow up for Chronic Constipation/GERD. Patient cc: acid reflex and some difficulty swallowing. [employer] Tech Required: No Accompanied by: Spouse Allergies indomethacin Allergy (Intermediate, Verified 06/29/24 07:34) stomach upset, panic attack metoprolol Adverse Reaction (Intermediate, Verified 06/29/24 07:34) Fatigue tizanidine Adverse Reaction (Intermediate, Verified 06/29/24 07:34) hallucination Medication List - Last Reconciled 06/29/24 by Frederic Garrison MD aspirin 325 mg PO DAILY PRN 15 days baclofen 10 mg PO BID 7 days cetirizine (Zyrtec) 10 mg PO DAILY 90 days cholecalciferol (vitamin D3) 250 mcg PO 2XW 90 days famotidine 20 mg PO BID 90 days fluoxetine 10 mg PO DAILY 90 days lubiprostone 8 mcg PO BID 90 days olopatadine 0.2% 1 drp ophthalmic (eye) DAILY sennosides (senna) 17.2 mg (2 x 8.6 mg) PO DAILY PRN 90 days trazodone 25 mg (1/2 x 50 mg) PO DAILY 30 days valacyclovir 2,000 mg (2 x 1 gram) PO Q12H 1 day valsartan 80 mg PO DAILY 90 days HPI HPI 8 month follow up: Details: GI CLINIC VISIT FOR THIS 63-YEAR-OLD FEMALE FOR FU of FATTY LIVER WITH ELEVATED LFTS AND CHRONIC CONSTIPATION. Pt is status post cholecystectomy. ? CHRONIC ILLNESSES:?shoulder pain, muscle spasms, urinary incontinence, osteoarthritis, DEPRESSION, CONSTIPATION, LEUKOCYTOSIS. TODAY'S VISIT: Patient follow up Constipation Patient cc: heartburn m still with constipation come and go and problems when she is swallowing on and off. Denies any other GI problems or issues. Pt is accompanied by her . Continues to have problems with heartburn and takes Famotidine 20 mg twice a day Intermittent dysphagia with bread and has to drink something Taking Anitiza and having regular BMs. PAST VISIT: Omeprazole three times a week. Has a change in insurance ([employer] and has $ 8500 deductable) Has a BM daily Pt reports gaining a few lbs over the holidays. Lost 8 lbs after she had a bad gout attack Started to cut back on her caloric and sugar intake and foods which cause inflammation Unable to work for 2 days and treated with Prednisone for the pain. Taking a natural medication to control the uric acid (Quercitin) GERD controlled with Famotidine and takes Omperazole prn for breakthrough symptoms Continues to have intermittent constipation Taking zuleima and flax seeds and drinking a lot of water. Colonoscopy results reviewed. Constipation is better with Lubiprostone. Takes Omeprazole prn and occasionally Famotidine for GERD Accompanied by her (Got end of March,) Had bad heartburn on 04/20/22 after eating [employer]. Takes Omeprazole prn and advised to take it daily. Not straining too much since starting Lubiprostone. Intermittent episodes of pain during swallowing - mostly solids. Denies food getting stuck. It goes down and she feels some pressure throughout the esophagus while swallowing Has been eating soft foods and chewing it more. Always has heartburn especially at night. Taking Omeprazole and famotidine prn and not daily. Elevates HOB with pillows and advised to use a wedge. Always having issues with the constipation which effects her hemorrhoids. BMs are hard and associated with straining and causes her hemorrhoids to come out. Complains of 6-7/10 cramping and burning upper abdominal pain radiating to the back since 06/09/21 Has nausea, vomiting and diarrhea Complains of chills and denies fever. Has not been able to eat.? Has nausea after she eats and has to go to the bathroom. Taking crackers and joseph renee. Diarrhea appears to be resolving today. Admits to being anxious since her daughter is not talking to her. Due for 2nd dose of COVID vaccine on 12/31/20 ? Had similar pain last year and ended up vomiting in the ER at [facility] Treated with medications for nausea with improvement in her symptoms. ? Doing ok besides the COVID issue. ? She was having problems with gout LABS IN [facility]:03/18/20 REVIEWED MILDLY ELEVATED LFTS WITH AST OF 45, ALT 40, ALKALINE PHOSPHATASE 107, HEPATITIS-B AND C SEROLOGIES WERE NEGATIVE IN THE PAST.? ? Stool test was negative for Helicobacter pylori. IMAGING STUDIES: 08/2017 ABDOMINAL ULTRASOUND SHOWED: Echogenic liver probably representing fatty infiltration. Otherwise unremarkable exam. ENDOSCOPIC STUDIES: 10/05/22 COLONOSCOPY SHOWED: No polyps were detected. Patchy erythema in the right colon with scattered ulcers with some heme - random biopsies were obtained. (Pt denied NSAID or aspirin use)Moderate diverticulosis seen in the sigmoid colon Moderate hemorrhoids on retroflexed exam. Plan:? Repeat Colonoscopy in 5 years if biopsies are normal. random biopsies were normal [facility] Medical History HTN (hypertension) Irritation of eye Fatty liver History of adenomatous polyp of colon Chronic constipation History of Helicobacter pylori infection GERD without esophagitis Surgical History History of bilateral cataract extraction History of total abdominal hysterectomy History of laparoscopic cholecystectomy Hx of endoscopy Hx of colonoscopy Family History Father Hypertension Myocardial infarction CAD (coronary artery disease) Mother Hypertension Thyroid disease Family/Other Heart disease Asthma Epilepsy Social History Household Members: Significant Other Housing: Apartment Alcohol intake: never Patient Tobacco Use Status: Never used Tobacco e-Cigarette/Vaping Use: Never Used Second Hand Smoke Exposure: No service: No Current occupational status: employed 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 Cognitive needs: No Hearing needs: No Vision needs: Yes Review of Systems Const All systems reviewed & are unremarkable except as noted in HPI and below Physical Exam Vital Signs: Last Vital Signs Pulse 68 06/29/24 07:43 BP 136/63 06/29/24 07:43 BMI result Body Mass Index 32.5 Const General: healthy appearing and no acute distress Nutritional Appearance: obese Orientation/consciousness: patient oriented x3 Limitations: no limitations HEENT Head: Yes normal to inspection Ears: hearing grossly normal bilaterally Eyes Sclerae: sclerae normal Pupils: Equal, round and reactive pupils present Neck Neck: Yes normal visual inspection Chest Chest palpation & inspection: normal inspection of the chest Resp Effort & Inspection: normal respiratory effort Auscultation: clear to auscultation bilaterally Cardio Palpation: normal PMI Rate: regular rate Rhythm: regular rhythm Heart sounds: S1 normal heart sound present, S2 normal heart sound present and no murmurs GI Palpation (GI): Soft to palpation, nontender and No hepatosplenomegaly present Auscultation: normal bowel sounds Rectal Exam - Female: deferred Skin General skin exam: no rashes or lesions noted Neuro General: patient oriented x3, gait normal and moves all extremities Cranial nerves: Yes Equal, round and reactive pupils present Psych Appearance: grossly normal Mental Status: mental status grossly normal Assessment & Plan Assessment & Plan (1) GERD without esophagitis: Comment: Continue omeprazole 20 mg once daily. Patient was treated with triple therapy for Helicobacter pylori consisting of clarithromycin, amoxicillin and omeprazole for 10 days. Follow-up stool for H pylori antigen was negative. Code(s): K21.9 - Gastro-esophageal reflux disease without esophagitis Category: Medical (2) Chronic constipation: Code(s): K59.09 - Other constipation Category: Medical (3) History of adenomatous polyp of colon: Comment: Three adenomatous polyps were removed during colonoscopy in Sep, 2019. 10/05/22 COLONOSCOPY SHOWED: No polyps were detected. Patchy erythema in the right colon with scattered ulcers with some heme - random biopsies were obtained. (Pt denied NSAID or aspirin use) Moderate diverticulosis seen in the sigmoid colon Moderate hemorrhoids on retroflexed exam. Plan: Repeat Colonoscopy in 5 years Code(s): Z86.010 - Personal history of colon polyps Category: Medical (4) Fatty liver: Code(s): K76.0 - Fatty (change of) liver, not elsewhere classified Category: Medical (5) Upper abdominal pain: Code(s): R10.10 - Upper abdominal pain, unspecified Category: Medical (6) Nausea and vomiting: Code(s): R11.2 - Nausea with vomiting, unspecified Category: Medical Plan 63 YF with shoulder pain, muscle spasms, urinary incontinence, osteoarthritis, DEPRESSION, CONSTIPATION, LEUKOCYTOSIS followed in GI for GERD, epigastric pain, chronic constipation, fatty liver related to obesity. Sep, 2019 Upper endoscopy showed nodular gastritis and gastric biopsies were positive for H pylori. Three adenomatous polyps were removed during same-day colonoscopy. Repeat colonoscopy is advised in 3 years and action was set in [facility]. Helicobacter pylori (H. pylori) infection - pt was treated with Clarithromycin, Amoxicillin and Omeprazole. Follow-up stool antigen for Helicobacter pylori was negative. 06/12/21 - Pt complained of abdominal pain, nausea, vomiting and diarrhea for 3-4 days - likely due to viral gastroenteritis/food poisoning. Diarrhea appears to be subsiding. Patient was advised to stop famotidine 20 mg and start omeprazole 20 mg twice daily with resolution of symptoms. 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 Sep, 2022 patient had a negative colonoscopy for FU of colon polyps. 04/29/2023 Continue Famotidine for GERD and Amitiza 8 mg daily for constipation 10/28/23 Continues to have problems with heartburn and takes Omeprazole three times a week. Has a change in insurance ([employer] and has $ 8500 deductable) Pt advised to take Famotidine 20 mg twice daily and if it is cheaper and GERD symptoms are well-controlled to DC omeprazole. 06/29/24 Pt advised to take Famotidine one to two times daily instead of prn FU in 6 months (FU of GERD, constipation and fatty liver Medications: Refilled cholecalciferol (vitamin D3) 250 mcg PO 2XW 90 days 26 caps 1RF E55.9 - Vitamin D deficiency, unspecified Coding Level of Care Code Est Pt Level 3 (29297) Diagnoses GERD without esophagitis K21.9 Chronic constipation K59.09 History of adenomatous polyp of colon Z86.010 Fatty liver K76.0 Upper abdominal pain R10.10 Nausea and vomiting R11.2
[2024-06-29 07:43] VITALS: BP 136/63; PULSE 68; BMI 32.5
== END 2024-06-29 09:18 | disposition home or self-care (01) ==
PROVIDERS: PCP Physician Assistant; Visit Provider Internal Medicine Gastroenterology
DX: K21.9 Gastro-esophageal reflux disease without esophagitis (principal); K59.09 Other constipation; Z86.0100 Personal history of colon polyps, unspecified; K76.0 Fatty (change of) liver, not elsewhere classified; R11.2 Nausea with vomiting, unspecified
CPT/HCPCS: 99213

== ENCOUNTER → 2024-06-29 07:29 | Outpatient (BNVA) | payer OTHER, SELFPAY | PROVIDERS: PCP Physician Assistant; Visit Provider Internal Medicine Gastroenterology | DX: K21.9 Gastro-esophageal reflux disease without esophagitis (principal); K59.09 Other constipation; K76.0 Fatty (change of) liver, not elsewhere classified; R13.10 Dysphagia, unspecified; R11.2 Nausea with vomiting, unspecified; R10.10 Upper abdominal pain, unspecified; E55.9 Vitamin D deficiency, unspecified; Z86.0100 Personal history of colon polyps, unspecified | CPT/HCPCS: 99212 ==

== ENCOUNTER 2024-08-15 08:02 | Outpatient (AMB) | payer MEDICARE, MEDICAID, SELFPAY ==
[2024-08-15 08:07] VITALS: BP 136/70; PULSE 78; O2SAT 98; BMI 33.0
--- NOTE | 2024-08-15 08:07 | MHC.PC.OV ---
Vital Signs 08/15/24 08:07 Height 4 ft 4 in Weight 127 lb BMI 33.0 BP 136/70 Blood Pressure Location Lt brachial Position Sitting Pulse 78 Pulse Source Pulse Oximeter Pulse Oximetry (%) 98 Oxygen Delivery Method Room Air Intake Visit Reasons: Annual Exam Allergies indomethacin Allergy (Intermediate, Verified 08/15/24 08:15) stomach upset, panic attack metoprolol Adverse Reaction (Intermediate, Verified 08/15/24 08:15) Fatigue tizanidine Adverse Reaction (Intermediate, Verified 08/15/24 08:15) hallucination Medication List - Last Reconciled 08/15/24 by Sean Teresa PA-C aspirin 325 mg PO DAILY PRN 15 days baclofen 10 mg PO BID 7 days cetirizine (Zyrtec) 10 mg PO DAILY 90 days cholecalciferol (vitamin D3) 250 mcg PO 2XW 90 days famotidine 20 mg PO BID 90 days fluoxetine 10 mg PO DAILY 90 days lubiprostone 8 mcg PO BID 90 days olopatadine 0.2% 1 drp ophthalmic (eye) DAILY sennosides (senna) 17.2 mg (2 x 8.6 mg) PO DAILY PRN 90 days valacyclovir 2,000 mg (2 x 1 gram) PO Q12H 1 day valsartan 80 mg PO DAILY 90 days Tobacco use date assessed: 08/15/24 Fall risk assessment: No Falls in past year Last assessed Fall Risk: 08/15/24 Dental Screening Dental Screen Date: 02/08/24 HPI Annual Exam HPI Details Patient is a 64-year-old female here today for an annual physical. ?Patient has a past medical history significant for hypertension, fatty liver disease, GERD,. Concern--> continues to have intermittent gout flares in her foot and ankle. She does use prednisone from time to time for acute flares. She also does report having bilateral lower extremity burning sensation when lying down to sleep which sounds more consistent with a neuropathy. .. HTN: Blood pressure in office today acceptable, she continues on valsartan. She does not regularly check her blood pressure at home. Reports her BP at home have been 110s to 120 systolic.? Denies any headaches, shortness of breath, chest discomfort or palpitations. Vaccine: Needs Flu, COVID, pneumonia and tetanus vaccines, need PCV-20 .. Colonoscopy:? Colonoscopy done in 2022- normal, repeat 5 years. . 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 Mammo : Mammogram done in 06/02/2024 BI-RADS 1 PFSH Medical History HTN (hypertension) Irritation of eye Fatty liver History of adenomatous polyp of colon Chronic constipation History of Helicobacter pylori infection GERD without esophagitis Surgical History History of bilateral cataract extraction History of total abdominal hysterectomy History of laparoscopic cholecystectomy Hx of endoscopy Hx of colonoscopy Family History Father Hypertension Myocardial infarction CAD (coronary artery disease) Mother Hypertension Thyroid disease Family/Other Heart disease Asthma Epilepsy Social History Household Members: Significant Other Housing: Apartment Alcohol intake: never Patient Tobacco Use Status: Never used Tobacco Tobacco use type: Cigarette e-Cigarette/Vaping Use: Never Used Second Hand Smoke Exposure: No service: No Current occupational status: employed 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 1. Little interest or pleasure in doing things: not at all 2. Feeling down, depressed, or hopeless: several days 3. Trouble falling or staying asleep, or sleeping too much: several days 4. Feeling tired or having little energy: several days 5. Poor appetite or overeating: several days 6. Feeling bad about yourself - or that you are a failure or have let yourself or your family down: several days 7. Trouble concentrating on things, such as reading the newspaper or watching television: several days 8. Moving or speaking so slowly that other people could have noticed. Or the opposite - being so fidgety or restless that you have been moving around a lot more than usual: not at all 9. Thoughts that you would be better off or of hurting yourself in some way: not at all Total score: 6 Depression Screening Interpretation: Positive Depression Screening Done: Yes 34950 - PHQ-9 Billing: Yes Source: Developed by Drs. Cruz Perez, Regis Villasenor and colleagues, with an educational carmencita from [employer]. Thrive Questionnaire Date Thrive assessed: 08/15/24 I am a: Patient What is your living situation today?: I have a steady place to live Within the past 12 months, did the food you bought not last and you didn't have the money to get more?: Often true Within the past 12 months, did you worry whether your food would run out before you got money to buy more?: Often true Do you have trouble paying for medicines?: I choose not to answer this question Do you have trouble getting transportation to medical appointments?: No Do you have trouble paying your heating and electricity bill?: I choose not to answer this question Do you have trouble taking care of your child, family member or friend?: Yes Do you have trouble with day-to-day activities such as bathing, preparing meals, shopping, managing finances, etc.?: No Are you currently unemployed and looking for a job?: Yes Are you interested in more education?: No Please select the resources that you would like help with: Food, Paying for medicine, Utilities and Care for elder or disabled Currently or been in a relationship where the following occur: No concerns reported THRIVE Score: 2 AUDIT C Alcohol Use Questionnaire (AUDIT-C) 1. How often do you have a drink containing alcohol?: Never Total Score: 0 FIOR-7 AMB Questionnaire FIOR-7 Date FIOR - 7 assessed: 08/15/24 Feeling nervous, anxious, or on edge: 2 = More than half the days Not being able to stop or control worryin = Nearly every day Worrying too much about different things: 2 = More than half the days Trouble relaxin = More than half the days Being so restless that it is hard to sit still: 3 = Nearly every day Becoming easily annoyed or irritable: 1 = Several days Feeling afraid as if something awful might happen: 2 = More than half the days Total FIOR-7 score (0-4 normal; 5-9 mild; 10-14 moderate; 15-21 severe): 15 Source: Developed by Drs. Cruz Perez, Regis Villasenor and colleagues, with an educational carmencita from [employer]. FIOR-7 Assessment Billing FIOR-7 Assessment Tool: FIOR-7 Assessment 40076 Review of Systems Const Denies body aches, Denies chills, Denies excessive sweating, Denies fatigue, Denies fever(s) and Denies headache(s) Eyes Denies blurry vision ENT Denies dysphagia, Denies vertigo, Denies dizziness, Denies headache(s), Denies hearing loss and Denies tinnitus Card Denies chest pain, Denies chest pain with activity, Denies syncope, Denies irregular heart rhythm and Denies dyspnea Resp Denies chest congestion, Denies cough, Denies hemoptysis, Denies dyspnea and Denies wheezing GI Denies abdominal pain, Denies melena, Denies hematochezia, Denies coffee ground emesis, Denies dysphagia, Denies diarrhea, Denies nausea and Denies vomiting Denies urinary frequency, Denies dysuria, Denies urinary hesitancy and Denies urinary urgency Musc Denies arthralgias, Denies limited range of motion, Denies muscle cramps and Denies muscle weakness Skin/Breast Denies rash and Denies skin ulcer Neuro Denies Abnormal speech present, Denies confusion, Denies vertigo, Denies dizziness, Denies syncope, Denies headache(s), Denies memory loss and Denies seizure-like activity Psych Denies anxiety, Denies confusion, Denies depression, Denies memory loss, Denies panic attacks and Denies paranoia Endo Denies excessive sweating, Denies fatigue, Denies flushing, Denies polydipsia and Denies polyuria Aller/Immun Denies wheezing Physical exam (Primary Care) Vital Signs: Last Vital Signs Pulse 78 08/15/24 08:07 BP 136/70 08/15/24 08:07 Pulse Ox 98 08/15/24 08:07 Oxygen Delivery Method Room Air 08/15/24 08:07 BMI result Body Mass Index 33.0 Tobacco/Smoking Status: Tobacco use Status Tobacco use date assessed 08/15/24 08/15/24 08:13 Patient Tobacco Use Status Never used Tobacco 08/15/24 08:13 Tobacco use type Cigarette 08/15/24 08:13 e-Cigarette/Vaping Use Never Used 08/15/24 08:13 PHQ-9: PHQ-9 Score PHQ-9: Total score 6 08/15/24 08:50 Depression Screening Interpretation: Positive Thrive Assessment: Date of Thrive Assessment Date Thrive assessed 08/15/24 08/15/24 08:13 Currently or been in a relationship where the following occur: No concerns reported Const General: cooperative, comfortable, no acute distress, alert and awake; No confusion Orientation/consciousness: oriented to person, oriented to place, patient oriented x3 and No confusion HENMT Head: Yes normocephalic Ears: external ears normal and TM's normal bilaterally Face and sinus: No sinus tenderness Mouth: Normal oral and palatal mucosa present and tongue normal Teeth and gingiva: dentition normal and gingiva normal Throat: Yes posterior oropharynx normal, Yes tonsils normal and Yes uvula midline Eyes Conjunctivae: conjunctivae normal Sclerae: sclerae normal Pupils: Equal, round and reactive pupils present EOM: EOMs intact bilaterally Direct Ophthalmoscopy: No no photophobia Neck Neck: Yes no lymphadenopathy, No tender and Yes no JVD Thyroid: Thyroid normal Carotids: no bruits Chest Chest palpation & inspection: no tenderness Resp Effort & Inspection: normal respiratory effort, no audible wheezes, not labored and no stridor Auscultation: no crackles, no rales, no rhonchi and no wheezes Cardio Jugular venous distension: no JVD Rate: regular rate, not bradycardic and not tachycardic Rhythm: regular rhythm Bruits: no carotid bruits Peripheral pulses: Peripheral pulses 2+ throughout GI Inspection: Yes normal to inspection, No abdominal wall ecchymosis and No visible herniation Palpation (GI): Soft to palpation, nontender, no guarding, not rigid and No hepatosplenomegaly present Auscultation: normoactive bowel sounds General: Yes no CVA tenderness Back/Spine/Pelvis Back: no CVA tenderness and No back tenderness Cervical Spine: cervical ROM normal Thoracic/Lumbar Spine: thoracic and lumbar spine normal to inspection, straight leg raise negative bilaterally, No thoraco-lumbar ROM limited and No lumbar spinal tenderness Skin Lesions: no lesions Rashes: no rashes Wounds: no wounds Neuro General: oriented to person, oriented to place, patient oriented x3, CN's II-XI intact bilaterally and No confusion Cranial nerves: Yes Equal, round and reactive pupils present and Yes Normal accommodation reflex present Cognition (Neuro): normal cognition Speech: No Abnormal speech present Gait exam (Neuro): Normal gait present Motor exam (neuro): 5/5 motor strength present throughout Extrem Right upper extremity: full ROM; no cyanosis Left upper extremity: full ROM; no cyanosis Right lower extremity: no edema Left lower extremity: no edema Psych Appearance: grossly normal Mental Status: mental status grossly normal Affect: normal affect Attitude: cooperative Thought process: Normal thought process present Office Procedures Flu Questionnaire Does the patient have a severe egg allergy?: No Does the patient have severe life threatening allergies?: No Does the patient have a fever or illness today?: No Has the patient ever had Guillain-Ruthton Syndrome?: No Has the patient ever had any past reaction to a flu shot?: No Immunizations Recombivax HB (PF) 10 mcg/mL intramuscular suspension Performing Provider: Sean Teresa PA-C Performing Location: [facility] [facility] Primary [facility] Administered by: MANAN Maldonado on 08/15/24 08:51 Dose Route Admin Location Dispensed Lot Number Expiration Date [facility] [place] 1 mL IM Left Deltoid 1 mL [id number] 06/12/26 [id number] [employer] VIS Given Date VIS Provided VIS Publication Date 08/15/24 Single Vaccine 23 Eligibility Eligibility Date Funding Source Not VFC Eligible 08/15/24 Private [employer] [id number] (PF) 45 mcg (15 mcg x 3)/0.5 mL IM syringe Performing Provider: Sean Teresa PA-C Performing Location: [facility] Adult Primary [facility] Administered by: MANAN Maldonado on 08/15/24 08:51 Dose Route Admin Location Dispensed Lot Number Expiration Date [facility] [place] 0.5 mL IM Right Deltoid 0.5 mL [id number] 03/12/25 [id number] [employer] VIS Given Date VIS Provided VIS Publication Date 08/15/24 Single Vaccine 21 Eligibility Eligibility Date Funding Source Not VFC Eligible 08/15/24 Private Coding Level of Care Code Est Pt Prev Care >65y(80655) Diagnoses Annual physical exam Z00.00 Essential hypertension I10 Hypertension type: essential hypertension 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 Chronicity: chronic Gout etiology: idiopathic Gout site: ankle Laterality: right Presence of tophus: without tophus Neuropathy involving both lower extremities G57.93 Laterality: bilateral Additional Codes FIOR-7 Assessment Billing - FIOR-7 Assessment Tool: FIOR-7 Assessment 05450 ([id number]) PHQ-9 - 98479 - PHQ-9 Billing: Yes ([id number]) Assessment & Plan Assessment & Plan (1) Annual physical exam: Code(s): Z00.00 - Encounter for general adult medical examination without abnormal findings Category: Medical Plan: As per HPI (2) HTN (hypertension): Code(s): I10 - Essential (primary) hypertension Category: Medical Qualifiers: Hypertension type: essential hypertension Qualified Code(s): I10 - Essential (primary) hypertension Plan: Patient's blood pressure acceptable today in office. Will continue current dose of valsartan with goal blood pressure to remain below 140/90. (3) Gout: Code(s): M10.9 - Gout, unspecified Category: Medical Qualifiers: Chronicity: chronic Gout etiology: idiopathic Gout site: ankle Laterality: right Presence of tophus: without tophus Qualified Code(s): M1A.0710 - Idiopathic chronic gout, right ankle and foot, without tophus (tophi) Plan: Patient's uric acid level is remains slightly elevated. Does report having foot and ankle pain from time to time. She does use prednisone which does help an acute flare though is concerned about weight gain. Will supply patient with colchicine to use on as needed basis for acute gout flares. We did discuss perhaps using allopurinol on a daily more chronic basis to reduce her uric acid levels and she is considering. (4) Lower extremity neuropathy: Code(s): G57.90 - Unspecified mononeuropathy of unspecified lower limb Category: Medical Qualifiers: Laterality: bilateral Qualified Code(s): G57.93 - Unspecified mononeuropathy of bilateral lower limbs Plan: zack does report signs and symptoms consistent with a lower extremity neuropathy versus restless leg syndrome. She does report having burning sensation from knee down bilaterally when lying in bed. We did discuss perhaps using a medication to help with neuropathic issues though she declines due to fears of side effects. She is using an [id number] daughter treatment which has been helpful. Orders: Orders Hepatitis B Adult Immunization Today Z23 - Encounter for immunization Microalbumin, Random (w Creat) Today I10 - Essential (primary) hypertension Comprehensive [place]. Panel Fast Today I10 - Essential (primary) hypertension Complete Blood Count no Diff Today I10 - Essential (primary) hypertension Influenza 1182-0012 Immunization Today Z23 - Encounter for immunization Medications: New colchicine 0.6 mg PO DAILY PRN 7 tabs 0RF gout attack 7 days M1A.0710 - Idiopathic chronic gout, right ankle and foot, without tophus (tophi)
== END 2024-08-15 08:55 | disposition home or self-care (01) ==
PROVIDERS: PCP Physician Assistant; Visit Provider Physician Assistant
DX: Z00.00 Encounter for general adult medical examination without abnormal findings (principal); I10 Essential (primary) hypertension; M1A.0710 Idiopathic chronic gout, right ankle and foot, without tophus (tophi); G57.93 Unspecified mononeuropathy of bilateral lower limbs; Z23 Encounter for immunization

== ENCOUNTER → 2024-08-15 08:02 | Outpatient (BNVA) | payer MEDICARE, MEDICAID, SELFPAY | PROVIDERS: PCP Physician Assistant; Visit Provider Physician Assistant | DX: Z00.00 Encounter for general adult medical examination without abnormal findings (principal); Z23 Encounter for immunization; I10 Essential (primary) hypertension; G57.93 Unspecified mononeuropathy of bilateral lower limbs; M1A.0710 Idiopathic chronic gout, right ankle and foot, without tophus (tophi) | CPT/HCPCS: 90471; 90656; 90746; 96127; 99397 ==

== ENCOUNTER 2024-09-01 14:44 | Outpatient (REF) | payer MEDICARE, MEDICAID, SELFPAY | END 2024-09-01 14:45 | disposition home or self-care (01) | LOC: HO.HMGCX 14:44 | PROVIDERS: PCP Physician Assistant; Visit Provider Physician Assistant | DX: I82.811 Embolism and thrombosis of superficial veins of right lower extremity (principal) | CPT/HCPCS: 93971 ==

== ENCOUNTER → 2024-09-05 11:10 | Outpatient (BNVA) | payer MEDICARE, MEDICAID, SELFPAY | PROVIDERS: PCP Physician Assistant; Visit Provider Physician Assistant Surgical | DX: I83.11 Varicose veins of right lower extremity with inflammation (principal); I83.12 Varicose veins of left lower extremity with inflammation | CPT/HCPCS: 99202 ==

== ENCOUNTER → 2024-09-05 11:10 | Outpatient (AMB) | payer MEDICARE, MEDICAID, SELFPAY ==
--- NOTE | 2024-09-05 11:16 | MHC.OFFVIS ---
Vital Signs 09/05/24 11:20 Height 4 ft 4 in Weight 127 lb BMI 33.0 Intake Visit Reasons: REFERENCE LIBRARY ASSISTANT/[facility] referral for VV Intake Note: REFERENCE LIBRARY ASSISTANT/PCP referral for bilateral VV w/ pain, Right LE worse than Left LE. Pain started about 2 months ago. Allergies indomethacin Allergy (Intermediate, Verified 09/05/24 11:21) stomach upset, panic attack metoprolol Adverse Reaction (Intermediate, Verified 09/05/24 11:21) Fatigue tizanidine Adverse Reaction (Intermediate, Verified 09/05/24 11:21) hallucination HPI HPI REFERENCE LIBRARY ASSISTANT/HMG referral for VV: Details: Rani, a pleasant 64-year-old female patient, is presenting today on a referral from her PCP for varicose vein concerns. Complaints include pain over varicosities, burning, numbness and tingling, swelling of lower extremities, cramping, fatigue, and heaviness of the lower extremities. It has been affecting their daily activities including walking, standing, and physical activity. It is noted more so in right leg. She is a nonsmoker and not a diabetic. She has been ruled out for DVT. She does also have complaints of right knee pain and all over right leg pain. Patient denies any previous venous surgery or injections. Patient denies any history of DVT/ PE. Patient denies any history of phlebitis. Trial of compression includes - elevation and compression stockings; she has difficulties with compression stockings They now present for vascular evaluation regarding their varicose veins. [facility] Medical History HTN (hypertension) Irritation of eye Fatty liver History of adenomatous polyp of colon Chronic constipation History of Helicobacter pylori infection GERD without esophagitis Surgical History History of bilateral cataract extraction History of total abdominal hysterectomy History of laparoscopic cholecystectomy Hx of endoscopy Hx of colonoscopy Family History Father Hypertension Myocardial infarction CAD (coronary artery disease) Mother Hypertension Thyroid disease Family/Other Heart disease Asthma Epilepsy Social History Household Members: Significant Other Housing: Apartment Alcohol intake: never Patient Tobacco Use Status: Never used Tobacco Tobacco use type: Cigarette e-Cigarette/Vaping Use: Never Used Second Hand Smoke Exposure: No service: No Current occupational status: employed 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 Cognitive needs: No Hearing needs: No Vision needs: Yes Review of Systems Const Reports as per HPI and Denies weakness ENT Reports Normal hearing present and Denies dizziness Card Reports as per HPI, Denies chest pain, Denies chest pain at rest, Denies chest pain with activity, Denies dyspnea and Denies dyspnea on exertion Resp Reports as per HPI, Denies cough, Denies dyspnea and Denies dyspnea on exertion GI Reports as per HPI, Denies abdominal pain, Denies nausea and Denies vomiting Musc Denies numbness Skin/Breast Reports as per HPI, Denies erythema and Denies wounds Neuro Reports Normal hearing present, Denies dizziness, Denies numbness, Denies Sensory deficit (Neuro) and Denies weakness Psych Reports no additional complaints Endo Reports no additional complaints Physical Exam Vital Signs: BMI result Body Mass Index 33.0 Const General: healthy appearing and no acute distress Orientation/consciousness: patient oriented x3 HEENT Head: Yes normal to inspection Ears: hearing grossly normal bilaterally Mouth: Normal oral and palatal mucosa present Resp Effort & Inspection: normal respiratory effort and able to speak in complete sentences Auscultation: clear to auscultation bilaterally Cardio Jugular venous distension: no JVD Rate: regular rate Rhythm: regular rhythm Heart sounds: S1 normal heart sound present and S2 normal heart sound present Bruits: no abdominal aortic bruits, no carotid bruits, no femoral bruits and no renal bruits Peripheral pulses: Peripheral pulses 2+ throughout GI Inspection: Yes normal to inspection Palpation (GI): No Abdominal aortic bruit present Skin General skin exam: no rashes or lesions noted Wounds: no wounds Hair: normal Neuro General: patient oriented x3 Cranial nerves: Yes Normal hearing present Cognition (Neuro): normal cognition Gait exam (Neuro): Normal gait present Motor exam (neuro): 5/5 motor strength present throughout Sensory Exam: No Sensory deficit (Neuro) Extrem Other: Bilateral lower extremities: trace peripheral edema noted. Spider veins noted throughout the right thigh area. Palpable DP pulses. CEAP: C - 3 E - primary A - superficial P - reflux General: Yes normal to inspection, Yes full ROM, Yes capillary refill normal and Yes normal gait Assessment & Plan Assessment & Plan (1) Varicose veins of both lower extremities with inflammation: Code(s): I83.11 - Varicose veins of right lower extremity with inflammation; I83.12 - Varicose veins of left lower extremity with inflammation Category: Medical Plan: Rani is presenting on a referral from her PCP for concerns of varicose veins. In short, the patient has evidence of venous insufficiency. I have discussed the pathophysiology with the patient. In addition I have provided informational material regarding venous disease to the patient. We have discussed conservative measures including compression, elevation, and exercise. We discussed the importance of wearing compression stockings. I have taken the liberty of ordering venous insufficiency testing with the patient. They will follow up with me after testing. The patient had an opportunity to ask questions regarding the treatment plan. All questions were answered. Imaging studies, laboratory studies and physical exam results were discussed and reviewed in detail. No major barriers to understanding were identified. The patient expressed understanding and agreement with the above treatment plan. The patient is aware they should contact our office by phone for worsening of the current condition or the appearance of new symptoms. Thank you for allowing me to participate in the vascular care of this patient. If you have any questions or concerns regarding the treatment for the above condition please do not hesitate to contact me. The office telephone contact is [phone]. This note is constructed using voice recognition software. While every effort has been made to ensure accuracy, head automatic sawyer errors may have been included. Thank you for allowing me to participate in the care of your patient. Yours sincerely, MACK Zamora Orders: Orders US venous duplex LE BI 1 Week I83.11 - Varicose veins of right lower extremity with inflammation, I83.12 - Varicose veins of left lower extremity with inflammation Coding Level of Care Code New Pt Level 4 (13223) Diagnoses Varicose veins of both lower extremities with inflammation I83.11; I83.12
[2024-09-05 11:20] VITALS: BMI 33.0
== END ==
PROVIDERS: PCP Physician Assistant; Visit Provider Physician Assistant Surgical
DX: I83.11 Varicose veins of right lower extremity with inflammation (principal); I83.12 Varicose veins of left lower extremity with inflammation
CPT/HCPCS: 99204

== ENCOUNTER 2024-09-15 08:34 | Outpatient (AMB) | payer MEDICARE, MEDICAID, SELFPAY ==
--- NOTE | 2024-09-15 08:47 | AM.OFFVISNUR ---
Intake Visit Reasons: Pneumonia Shot Allergies indomethacin Allergy (Intermediate, Verified 09/05/24 11:21) stomach upset, panic attack metoprolol Adverse Reaction (Intermediate, Verified 09/05/24 11:21) Fatigue tizanidine Adverse Reaction (Intermediate, Verified 09/05/24 11:21) hallucination Immunizations pneumoc 20-mark conj-dip cr(PF) 0.5 mL IM syringe Performing Provider: Sean Teresa PA-C [facility] Administered by: Marguerite Ochoa LPN on 09/15/24 08:47 Dose Route Admin Location Dispensed Lot Number Expiration Date [employer] 0.5 mL IM Left Deltoid 0.5 mL [id number] 01/10/26 [id number] [employer] VIS Given Date VIS Provided VIS Publication Date 09/15/24 Single Vaccine 21 Eligibility Eligibility Date Funding Source Not [facility] Eligible 09/15/24 Private Assessment & Plan Assessment & Plan Orders: Orders Pneumococcal 20 Immunization Today Z23 - Encounter for immunization Medications: New pneumoc 20-mark conj-dip cr(PF) 0.5 mL IM ONCE 0.5 mL 0RF Z23 - Encounter for immunization
== END 2024-09-15 08:48 | disposition home or self-care (01) ==
PROVIDERS: PCP Physician Assistant; Visit Provider Physician Assistant
DX: Z23 Encounter for immunization (principal)

== ENCOUNTER 2024-09-16 09:32 | Outpatient (REF) | payer MEDICARE, MEDICAID, SELFPAY ==
--- NOTE | ~2024-09-16 | XR_ITS ---
CLINICAL HISTORY: M79.604 - Pain in right leg 3 view right ankle Comparison: CR/SR - ANKLE RIGHT COMPLETE [id number] - 01/23/19 13:19 EDT Findings: Ankle mortise is symmetric. Syndesmosis is intact.No definitive fracture or dislocation. Scattered mild multi joint degenerative changes, including at the ankle joint, subtalar joint, and partially imaged midfoot, similar to the prior study. No ankle joint effusion. No radiopaque foreign body. Moderate Achilles enthesophyte and small plantar enthesophyte, similar to the prior studies. IMPRESSION: 1. No acute findings. This document has been electronically signed by: Emily George MD on 09/18/2024 09:56:26
--- NOTE | ~2024-09-16 | XR_ITS ---
CLINICAL HISTORY: M79.604 - Pain in right leg 2 view right femur Comparison: None Findings: No fractures or dislocations. No knee effusion. No significant arthritic change. No radiopaque foreign body. IMPRESSION: 1. Normal right femur This document has been electronically signed by: Julissa Miller MD on 09/18/2024 14:43:29
--- NOTE | ~2024-09-16 | XR_ITS ---
CLINICAL HISTORY: M79.604 - Pain in right leg 2 view right tibia-fibula Comparison: None Findings No fractures or dislocations. No joint effusion. No significant arthritic change. No radiopaque foreign body. IMPRESSION: 1. Normal right tibia-fibula This document has been electronically signed by: Julissa Miller MD on 09/18/2024 14:42:55
--- NOTE | ~2024-09-16 | XR_ITS ---
CLINICAL HISTORY: M79.604 - Pain in right leg 4 view right knee Comparison: None Findings: No acute fractures or dislocations. Tricompartmental periarticular osteophyte formation, indicating osteoarthritis. No joint effusion. No radiopaque foreign body. IMPRESSION: 1. No acute findings. This document has been electronically signed by: Julissa Miller MD on 09/18/2024 14:42:19
[2024-09-16 09:59] LABS: Hematocrit 44.1 % (37.0-47.0); Hemoglobin 14.6 g/dl (12.0-16.0); Mean Corpuscular HGB Conc 33.1 g/dl (31.0-35.0); Mean Corpuscular Hemoglobin 29.8 pg (27.0-33.0); Mean Platelet Volume 9.6 fL (9.4-12.3); Platelet Count 355 X10*3/uL (160-400); Red Cell Distribution Width 13.1 % (11.0-16.0); White Blood Count 11.3 X10*3/uL (4.8-10.8)
[2024-09-16 10:22] LABS: Alanine Aminotransferase 35 U/L (0-31); Albumin Level 4.4 g/dL (3.5-5.0); Alkaline Phosphatase 101 U/L (39-117); Anion Gap 12 (12-20); Aspartate Amino Transferase 35 U/L (5-31); Bilirubin Total 0.5 mg/dL (0.0-1.0); Blood Urea Nitrogen 9 mg/dL (9-16); Calcium 9.6 mg/dL (8.4-10.2); Carbon Dioxide 23 mmol/L (22-29); Chloride 113 mmol/L (96-108); Creatinine Urine 198.54 mg/dL; Estimated Glomerular Filt Rate > 60; Glucose Fasting 102 mg/dL (60-99); Microalbum/Creatinine Ratio Ur 14.1 ug/mg cr (<30); Sodium 144 mmol/L (135-145); Total Protein 7.8 g/dL (6.5-8.0)
== END 2024-09-16 09:33 | disposition home or self-care (01) ==
LOC: HO.XRAY 09:32
PROVIDERS: PCP Physician Assistant; Visit Provider Physician Assistant
DX: M79.604 Pain in right leg (principal); M25.561 Pain in right knee; M25.571 Pain in right ankle and joints of right foot; I10 Essential (primary) hypertension
CPT/HCPCS: 36415; 73552; 73564; 73590; 73600; 80053; 82043; 82570; 85027

== ENCOUNTER → 2024-09-16 09:50 | Outpatient (BNV) | payer MEDICARE, MEDICAID, SELFPAY | PROVIDERS: PCP Physician Assistant; Visit Provider Radiology Diagnostic Radiology | DX: M79.604 Pain in right leg (principal) | CPT/HCPCS: 73552; 73564; 73590 ==

== ENCOUNTER 2024-09-26 08:24 | Outpatient (REF) | payer MEDICARE, MEDICAID, SELFPAY ==
--- NOTE | ~2024-09-26 | US_ITS ---
CLINICAL HISTORY: I83.11 - Varicose veins of right lower extremity with inflammation Venous duplex ultrasound bilateral lower extremity Comparison: None Findings: Imaged deep veins are compressible with normal Doppler color flow and spectral tracings. Posterior tibial and peroneal veins are not assessed at this time. Additional imaging is performed for measurement of great saphenous veins and short saphenous veins. Right great saphenous vein measures 0.2 cm diameter up to 0.7 cm diameter. Left great saphenous vein measures 0.2 cm diameter 2 0.8 cm diameter. Right small saphenous vein measures 0.1 cm diameter to 0.3 cm diameter. Left small saphenous vein measures 0.1 cm diameter to 0.3 cm diameter. IMPRESSION: 1. Negative for bilateral lower extremity deep vein thrombosis. 2. Bilateral great saphenous veins measure 0.2 cm diameter up to 0.7 cm diameter This document has been electronically signed by: Ahsan Galeana MD on 09/27/2024 19:10:57
== END 2024-09-26 08:25 | disposition home or self-care (01) ==
LOC: HO.US 08:24
PROVIDERS: PCP Physician Assistant; Visit Provider Physician Assistant Surgical
DX: I83.11 Varicose veins of right lower extremity with inflammation (principal); I83.12 Varicose veins of left lower extremity with inflammation
CPT/HCPCS: 93970

== ENCOUNTER → 2024-09-26 08:25 | Outpatient (BNV) | payer MEDICARE, MEDICAID, SELFPAY | PROVIDERS: PCP Physician Assistant; Visit Provider Radiology Neuroradiology | DX: I83.11 Varicose veins of right lower extremity with inflammation (principal); I83.12 Varicose veins of left lower extremity with inflammation | CPT/HCPCS: 93970 ==

== ENCOUNTER 2024-10-12 09:04 | Outpatient (AMB) | payer MEDICARE, MEDICAID, SELFPAY ==
--- NOTE | 2024-10-12 09:06 | MHC.OFFVIS ---
Vital Signs 10/12/24 09:07 Height 4 ft 4 in Weight 127 lb BMI 33.0 Intake Visit Reasons: follow up s/p US 09/26/24 Intake Note: follow up US 09/26/24 for VV w/ pain, right leg worse than the Left LE Accompanied by: Spouse Allergies indomethacin Allergy (Intermediate, Verified 10/12/24 09:15) stomach upset, panic attack metoprolol Adverse Reaction (Intermediate, Verified 10/12/24 09:15) Fatigue tizanidine Adverse Reaction (Intermediate, Verified 10/12/24 09:15) hallucination tramadol Adverse Reaction (Mild, Verified 10/12/24 09:15) Anxiety HPI HPI follow up s/p US 09/26/24: Details: Very pleasant 64-year-old female presents for evaluation regarding venous insufficiency. This all began as a workup of some discomfort and pain on the right lower extremity. She noted that it was on the knee and occasionally had burning sensation down in the calf. She now presents for follow-up with venous insufficiency testing. [facility] Medical History HTN (hypertension) Irritation of eye Fatty liver History of adenomatous polyp of colon Chronic constipation History of Helicobacter pylori infection GERD without esophagitis Surgical History History of bilateral cataract extraction History of total abdominal hysterectomy History of laparoscopic cholecystectomy Hx of endoscopy Hx of colonoscopy Family History Father Hypertension Myocardial infarction CAD (coronary artery disease) Mother Hypertension Thyroid disease Family/Other Heart disease Asthma Epilepsy Social History Household Members: Significant Other Housing: Apartment Alcohol intake: never Patient Tobacco Use Status: Never used Tobacco Tobacco use type: Cigarette e-Cigarette/Vaping Use: Never Used Second Hand Smoke Exposure: No service: No Current occupational status: employed 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 Cognitive needs: No Hearing needs: No Vision needs: Yes Review of Systems Const All systems reviewed & are unremarkable except as noted in HPI and below Reports no additional complaints ENT Reports Normal hearing present Card Denies chest pain, Denies chest pain at rest, Denies chest pain with activity and Denies pedal edema Resp Denies cough GI Denies abdominal pain Musc Denies abnormal gait, Denies muscle cramps and Denies radiating pain into limb Skin/Breast Denies skin ulcer and Denies wounds Neuro Reports Normal hearing present and Denies abnormal gait Psych Reports no additional complaints Physical Exam Vital Signs: BMI result Body Mass Index 33.0 Const General: cooperative, healthy appearing and comfortable Orientation/consciousness: oriented to person, oriented to place and oriented to time HEENT Head: Yes normal to inspection Neck Neck: Yes normal visual inspection Carotids: no bruits Chest Chest palpation & inspection: normal inspection of the chest Resp Effort & Inspection: normal respiratory effort and able to speak in complete sentences Auscultation: clear to auscultation bilaterally, no crackles, no rales, no rhonchi and no wheezes Cardio Other: Bilateral palpable dorsalis pedis pulses Rate: regular rate Rhythm: regular rhythm Heart sounds: S1 normal heart sound present and S2 normal heart sound present Bruits: no carotid bruits Peripheral pulses: Peripheral pulses 2+ throughout GI Inspection: Yes normal to inspection Skin Wounds: no wounds Hair: normal Neuro General: oriented to person, oriented to place and oriented to time Cranial nerves: Yes CN's II-XII intact bilaterally and Yes Normal hearing present Cognition (Neuro): normal cognition Motor exam (neuro): 5/5 motor strength present throughout Extrem Other: venous exam: No significant superficial varicosities or spider telangiectasias, minimal edema General: No clubbing, No cyanosis and No edema Psych Appearance: grossly normal Mental Status: mental status grossly normal Speech and movement: Normal speech and movement present Results Reviewed Results Reviewed: Brief summary of venous insufficiency testing is as follows: right great saphenous vein: negative right small saphenous vein: negative right accessory vein: none present left great saphenous vein: negative left small saphenous vein: negative left accessory vein: none present Please note there is no evidence of any venous aneurysms or significant tortuosity Assessment & Plan Assessment & Plan (1) Right leg pain: Code(s): M79.604 - Pain in right leg Category: Medical Plan: In short patient has no significant vascular disease. Patient is negative for any significant venous insufficiency and has palpable arterial pulses. This may be more neurogenic in nature. This was discussed in detail with the patient. We did discuss routine conservative measures including compression, elevation and exercise. The patient will follow up with us on an as-needed basis. Thank you for allowing us to assist in her care. If there are any questions or concerns please do not hesitate to contact us Coding Level of Care Code Est Pt Level 4 (82948) Diagnoses Right leg pain M79.604
[2024-10-12 09:07] VITALS: BMI 33.0
== END 2024-10-12 09:26 | disposition home or self-care (01) ==
PROVIDERS: PCP Physician Assistant; Visit Provider Surgery Vascular Surgery
DX: M79.604 Pain in right leg (principal)
CPT/HCPCS: 99214

== ENCOUNTER → 2024-10-12 09:04 | Outpatient (BNVA) | payer MEDICARE, MEDICAID, SELFPAY | PROVIDERS: PCP Physician Assistant; Visit Provider Surgery Vascular Surgery | DX: M79.604 Pain in right leg (principal) | CPT/HCPCS: 99212 ==

== ENCOUNTER 2025-02-13 08:41 | Outpatient (AMB) | payer MEDICARE, MEDICAID, SELFPAY ==
--- NOTE | 2025-02-13 08:47 | A.OFFPC_ITS ---
Vital Signs 02/13/25 08:48 Height 4 ft 4 in Weight 128 lb BMI 33.3 BP 110/68 Blood Pressure Location Lt brachial Position Sitting Pulse 72 Pulse Source Pulse Oximeter Temp 97.3 F Temp Source Temporal Artery Scan Pulse Oximetry (%) 95 Oxygen Delivery Method Room Air Intake Visit Reasons: f/u HTN/ gout Intake Note: Patient is here to follow up on HTN, Gout. 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 Accompanied by: Spouse Allergies indomethacin Allergy (Intermediate, Verified 02/13/25 08:57) stomach upset, panic attack metoprolol Adverse Reaction (Intermediate, Verified 02/13/25 08:57) Fatigue tizanidine Adverse Reaction (Intermediate, Verified 02/13/25 08:57) hallucination valsartan Adverse Reaction (Intermediate, Verified 02/13/25 08:57) Difficulty Breathing tramadol Adverse Reaction (Mild, Verified 02/13/25 08:57) Anxiety Medication List - Last Reconciled 02/13/25 by Sean Teresa PA-C aspirin 325 mg PO DAILY PRN 15 days baclofen 10 mg PO BID 7 days cetirizine (Zyrtec) 10 mg PO DAILY 90 days cholecalciferol (vitamin D3) 250 mcg PO 2XW 90 days colchicine 0.6 mg PO DAILY PRN 7 days famotidine 20 mg PO BID 90 days lubiprostone 8 mcg PO BID 90 days olopatadine 0.2% 1 drp ophthalmic (eye) DAILY sennosides (senna) 17.2 mg (2 x 8.6 mg) PO DAILY PRN 90 days valacyclovir 2,000 mg (2 x 1 gram) PO Q12H 1 day Tobacco use date assessed: 02/13/25 Fall risk assessment: No Falls in past year Last assessed Fall Risk: 02/13/25 Dental Screening Dental Screen Date: 02/13/25 Did you have a dental visit in the last 12 months?: Yes Did you have a dental problem in the last 6 months where you did not have access to dental care?: No Was dental information given to patient?: Patient has dentist HPI f/u HTN/ gout HPI Details Patient is a 64-year-old female here today for a follow-up visit ?Patient has a past medical history significant for hypertension, fatty liver disease, GERD,. 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 Previous self- medication with Tramadol and melatonin led to severe anxiety and discomfort. Despite having a prescription for Fluoxetine, she has not initiated it. .. HTN: Blood pressure in office today acceptable, she is discontinuing valsartan in her blood pressures seem to continue to be stable. Right now her blood pressure is dietary/lifestyle controlled. She does not regularly check her blood pressure at home. Reports her BP at home have been 110s to 120 systolic.? Denies any headaches, shortness of breath, chest discomfort or palpitations. [facility] Medical History HTN (hypertension) Irritation of eye Fatty liver History of adenomatous polyp of colon Chronic constipation History of Helicobacter pylori infection GERD without esophagitis Surgical History History of bilateral cataract extraction History of total abdominal hysterectomy History of laparoscopic cholecystectomy Hx of endoscopy Hx of colonoscopy Family History Father Hypertension Myocardial infarction CAD (coronary artery disease) Mother Hypertension Thyroid disease Family/Other Heart disease Asthma Epilepsy Social History Household Members: Significant Other Housing: Apartment Alcohol intake: never Patient Tobacco Use Status: Never used Tobacco Tobacco use type: Cigarette e-Cigarette/Vaping Use: Never Used Second Hand Smoke Exposure: No service: No Current occupational status: employed 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 1. Little interest or pleasure in doing things: several days 2. Feeling down, depressed, or hopeless: several days 3. Trouble falling or staying asleep, or sleeping too much: more than half the days 4. Feeling tired or having little energy: more than half the days 5. Poor appetite or overeating: more than half the days 6. Feeling bad about yourself - or that you are a failure or have let yourself or your family down: more than half the days 7. Trouble concentrating on things, such as reading the newspaper or watching television: more than half the days 8. Moving or speaking so slowly that other people could have noticed. Or the opposite - being so fidgety or restless that you have been moving around a lot more than usual: more than half the days 9. Thoughts that you would be better off or of hurting yourself in some way: not at all Total score: 14 Depression Screening Interpretation: Positive Depression Screening Follow-up: Existing condition Depression Screening Done: Yes 29865 - PHQ-9 Billing: Yes Source: Developed by Drs. Cruz Perez, Zita Gillis, Regis Cabello and colleagues, with an educational carmencita from [employer]. Thrive Questionnaire Date Thrive assessed: 02/07/25 I am a: Patient What is your living situation today?: I have a steady place to live Within the past 12 months, did the food you bought not last and you didn't have the money to get more?: Sometimes True Within the past 12 months, did you worry whether your food would run out before you got money to buy more?: Often true Do you have trouble paying for medicines?: Yes Do you have trouble getting transportation to medical appointments?: No Do you have trouble paying your heating and electricity bill?: No Do you have trouble taking care of your child, family member or friend?: Yes Do you have trouble with day-to-day activities such as bathing, preparing meals, shopping, managing finances, etc.?: No Are you currently unemployed and looking for a job?: No Are you interested in more education?: No Please select the resources that you would like help with: Care for elder or disabled Currently or been in a relationship where the following occur: No concerns reported THRIVE Score: 2 AUDIT C Alcohol Use Questionnaire (AUDIT-C) 1. How often do you have a drink containing alcohol?: Never Total Score: 0 FIOR-7 AMB Questionnaire FIOR-7 Date FIOR - 7 assessed: 02/13/25 Feeling nervous, anxious, or on edge: 1 = Several days Not being able to stop or control worryin = More than half the days Worrying too much about different things: 3 = Nearly every day Trouble relaxin = Nearly every day Being so restless that it is hard to sit still: 2 = More than half the days Becoming easily annoyed or irritable: 2 = More than half the days Feeling afraid as if something awful might happen: 3 = Nearly every day Total FIOR-7 score (0-4 normal; 5-9 mild; 10-14 moderate; 15-21 severe): 16 Source: Developed by Drs. Cruz Perez, Zita Gillis, Regis Cabello and colleagues, with an educational carmencita from [employer]. FIOR-7 Assessment Billing FIOR-7 Assessment Tool: FIOR-7 Assessment 72917 Review of Systems Const Denies headache(s) Eyes Denies loss of vision ENT Denies vertigo, Denies dizziness, Denies headache(s) and Denies sore throat Card Denies chest pain, Denies leg edema and Denies lightheadedness Resp Denies cough, Denies hemoptysis and Denies wheezing GI Denies abdominal pain, Denies melena, Denies constipation, Denies diarrhea and Denies vomiting Denies urinary frequency, Denies dysuria and Denies urinary urgency Musc Denies arthralgias, Denies joint swelling, Denies numbness and Denies tingling Neuro Denies Abnormal speech present, Denies behavioral changes, Denies vertigo, Denies dizziness, Denies headache(s), Denies loss of vision, Denies memory loss, Denies numbness and Denies tingling Psych Denies anxiety, Denies behavioral changes, Denies depression, Denies memory loss and Denies panic attacks Dany/Lymph Denies easy bleeding and Denies easy bruising Aller/Immun Denies wheezing Physical exam (Primary Care) Vital Signs: Last Vital Signs Temp 97.3 F 02/13/25 08:48 Pulse 72 02/13/25 08:48 BP 110/68 02/13/25 08:48 Pulse Ox 95 02/13/25 08:48 Oxygen Delivery Method Room Air 02/13/25 08:48 BMI result Body Mass Index 33.3 Tobacco/Smoking Status: Tobacco use Status Tobacco use date assessed 02/13/25 02/13/25 08:56 Patient Tobacco Use Status Never used Tobacco 02/13/25 08:56 Tobacco use type Cigarette 02/13/25 08:56 e-Cigarette/Vaping Use Never Used 02/13/25 08:56 PHQ-9: PHQ-9 Score PHQ-9: Total score 14 02/13/25 08:58 Depression Screening Interpretation: Positive Depression Screening Follow-up: Existing condition Thrive Assessment: Date of Thrive Assessment Date Thrive assessed 02/07/25 02/13/25 08:56 Currently or been in a relationship where the following occur: No concerns reported Const General: healthy appearing, no acute distress, alert and awake Nutritional Appearance: well nourished Orientation/consciousness: oriented to person, oriented to place and oriented to time HENMT Ears: TM's normal bilaterally General nose exam: Normal nasal mucous membranes and turbinates present Eyes Conjunctivae: conjunctivae normal Sclerae: sclerae normal Pupils: Equal, round and reactive pupils present Neck Neck: Yes no lymphadenopathy and Yes no JVD Thyroid: Thyroid normal Carotids: no bruits Resp Effort & Inspection: normal respiratory effort and not tachypneic Auscultation: no crackles, no rales, no rhonchi and no wheezes Cardio Rate: regular rate Rhythm: regular rhythm Heart sounds: no murmurs and normal S1 and S2 GI Palpation (GI): Soft to palpation, nontender, no hepatomegaly and no splenomegaly Auscultation: normal bowel sounds Skin General skin exam: no rashes or lesions noted and dry skin Neuro General: oriented to person, oriented to place and oriented to time Cranial nerves: Yes Equal, round and reactive pupils present Speech: No Abnormal speech present Gait exam (Neuro): Normal gait present Motor exam (neuro): no tremor noted Extrem Right upper extremity: full ROM Left upper extremity: full ROM Right lower extremity: full ROM; no edema Left lower extremity: full ROM; no edema Psych Mental Status: mental status grossly normal Speech and movement: Normal speech and movement present Affect: normal affect Attitude: cooperative Thought process: Normal thought process present Coding Level of Care Code Est Pt Level 4 (87848) Diagnoses Essential hypertension I10 Hypertension type: essential hypertension 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 Chronicity: chronic Gout etiology: idiopathic Gout site: ankle Laterality: right Presence of tophus: without tophus FIOR (generalized anxiety disorder) F41.1 Additional Codes PHQ-9 - 69586 - PHQ-9 Billing: Yes ([id number]) FIOR-7 Assessment Billing - FIOR-7 Assessment Tool: FIOR-7 Assessment 71561 ([id number]) Assessment & Plan Assessment & Plan (1) HTN (hypertension): Code(s): I10 - Essential (primary) hypertension Category: Medical Qualifiers: Hypertension type: essential hypertension Qualified Code(s): I10 - Essential (primary) hypertension Plan: Patient's blood pressure acceptable today in office. Patient has discontinued valsartan and blood pressures remain acceptable. Will continue to manage her blood pressure with lifestyle and dietary modifications. Goal blood pressure to remain below 140/90. (2) Gout: Code(s): M10.9 - Gout, unspecified Category: Medical Qualifiers: Chronicity: chronic Gout etiology: idiopathic Gout site: ankle Laterality: right Presence of tophus: without tophus Qualified Code(s): M1A.0710 - Idiopathic chronic gout, right ankle and foot, without tophus (tophi) Plan: She has not had many any gout flares in quite some time. She has modified her diet to a low purine diet. Will continue to follow her uric acid levels. (3) FIOR (generalized anxiety disorder): Code(s): F41.1 - Generalized anxiety disorder Category: Medical Plan: Patient's FIOR-7 score positive for anxiety which has been existing condition for her. As of late patient reports her anxiety has been more elevated in has had have some panic attacks.. Provide Lorazepam for acute episodes. Encourage soothing methods for stress relief. Orders: Orders Comprehensive Platter. Panel Fast Today I10 - Essential (primary) hypertension Uric Acid Today M1A.0710 - Idiopathic chronic gout, right ankle and foot, without tophus (tophi) Complete Blood Count no Diff Today I10 - Essential (primary) hypertension Medications: New lorazepam 0.5 mg PO DAILY PRN 5 tabs 0RF anxiety 5 days F41.1 - Generalized anxiety disorder Refilled cholecalciferol (vitamin D3) 250 mcg PO 2XW 26 caps 1RF 90 days E55.9 - Vitamin D deficiency, unspecified Patient Instructions: Goal: Blood pressure to remain below 140/90 Barriers: Adherence to physical activity and healthy eating habits
[2025-02-13 08:48] VITALS: BP 110/68; PULSE 72; TEMP 36.3; O2SAT 95; BMI 33.3
== END 2025-02-13 09:16 | disposition home or self-care (01) ==
LOC: HO.HMCH 08:43
PROVIDERS: PCP Physician Assistant; Visit Provider Physician Assistant
DX: I10 Essential (primary) hypertension (principal); M1A.0710 Idiopathic chronic gout, right ankle and foot, without tophus (tophi); F41.1 Generalized anxiety disorder

== ENCOUNTER → 2025-02-13 08:41 | Outpatient (BNVA) | payer MEDICARE, MEDICAID, SELFPAY | PROVIDERS: PCP Physician Assistant; Visit Provider Physician Assistant | DX: I10 Essential (primary) hypertension (principal); M1A.0710 Idiopathic chronic gout, right ankle and foot, without tophus (tophi); F41.1 Generalized anxiety disorder | CPT/HCPCS: 96127; 99212 ==

== ENCOUNTER 2025-02-21 08:37 | Outpatient (AMB) | payer MEDICARE, MEDICAID, SELFPAY ==
[2025-02-21 08:43] VITALS: BP 116/64; PULSE 75; TEMP 36.9; O2SAT 97; BMI 33.8
--- NOTE | 2025-02-21 08:43 | MHC.OFFWIV ---
Intake Vital Signs 02/21/25 08:43 Height 4 ft 4 in Weight 130 lb BMI 33.8 BP 116/64 Blood Pressure Location Rt brachial Position Sitting Pulse 75 Pulse Source Pulse Oximeter Temp 98.5 F Temp Source Oral Pulse Oximetry (%) 97 Oxygen Delivery Method Room Air Intake Visit Reasons: EP ? strep throat Patient Tobacco Use Status: Never used Tobacco Allergies indomethacin Allergy (Intermediate, Verified 02/21/25 08:47) stomach upset, panic attack metoprolol Adverse Reaction (Intermediate, Verified 02/21/25 08:47) Fatigue tizanidine Adverse Reaction (Intermediate, Verified 02/21/25 08:47) hallucination valsartan Adverse Reaction (Intermediate, Verified 02/21/25 08:47) Difficulty Breathing tramadol Adverse Reaction (Mild, Verified 02/21/25 08:47) Anxiety HPI HPI Comments History of Present Illness Details History - The patient is a 64-year-old female presenting with sore throat and subjective fever. - The sore throat began yesterday, accompanied by fever, without a measured temperature. - The patient denies cough, sinus pain, ear pain, or head congestion. - She works in [employer] and is exposed to many residents, but no known exposure to strep throat. - She has been taking Tylenol PM for symptom relief, which made her tired and allowed her to sleep. - The patient has a history of seasonal allergies but does not take daily allergy medication. Physical Exam General: Cooperative, healthy appearing, comfortable and no acute distress Orientation/consciousness: Patient oriented x3 Limitations: No limitations Head: Normal to inspection Ears: Hearing grossly normal bilaterally, external ears normal and TM's normal bilaterally Nose: Normal external nose present, Normal nares present and No nasal discharge present Face and sinus: Normal facial exam and Yes sinuses nontender Mouth: Normal oral and palatal mucosa present and moist mucous membranes Throat: Yes tonsils normal, Yes uvula midline. Posterior oropharynx erythema, no exudates Eyes: Appearance normal, both eyes and all related structures Neck: Normal visual inspection Respiratory: Clear to auscultation bilaterally. Normal respiratory effort, able to speak in complete sentences, No active coughing, no respiratory distress, not tachypneic, no tripod positioning and no use of accessory muscles Cardiovascular: Regular rate and rhythm. Normal S1 and S2 Skin: No rashes or lesions noted Neuro: Patient oriented x3 Extremities: Normal to inspection and Yes no clubbing, cyanosis or edema PFSH Medical History HTN (hypertension) Irritation of eye Fatty liver History of adenomatous polyp of colon Chronic constipation History of Helicobacter pylori infection GERD without esophagitis Surgical History History of bilateral cataract extraction History of total abdominal hysterectomy History of laparoscopic cholecystectomy Hx of endoscopy Hx of colonoscopy Family History Father Hypertension Myocardial infarction CAD (coronary artery disease) Mother Hypertension Thyroid disease Family/Other Heart disease Asthma Epilepsy Social History Household Members: Significant Other Housing: Apartment Alcohol intake: never Patient Tobacco Use Status: Never used Tobacco Tobacco use type: Cigarette e-Cigarette/Vaping Use: Never Used Second Hand Smoke Exposure: No service: No Current occupational status: employed 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 Cognitive needs: No Hearing needs: No Vision needs: Yes Review of Systems Const All systems reviewed & are unremarkable except as noted in HPI and below Physical Exam Vital Signs: Last Vital Signs Temp 98.5 F 02/21/25 08:43 Pulse 75 02/21/25 08:43 BP 116/64 02/21/25 08:43 Pulse Ox 97 02/21/25 08:43 Oxygen Delivery Method Room Air 02/21/25 08:43 BMI result Body Mass Index 33.8 Results AMB Rapid Strep AMB Rapid Strep Negative Last Edit by Yesika Meyer CMA on 02/21/25 08:52 Results Reviewed Results Reviewed: Laboratory Last Values Strep Scn Rapid Clinic Negative 02/21/25 08:50 Assessment & Plan Assessment & Plan (1) Seasonal allergic rhinitis: Code(s): J30.2 - Other seasonal allergic rhinitis Qualifiers: Allergic rhinitis trigger: pollen Qualified Code(s): J30.1 - Allergic rhinitis due to pollen Plan: VSS, pt well appearing and PE unremarkable. - Recommend starting a daily allergy medication such as Zyrtec to address seasonal allergies. - Advise using hot tea with honey and ibuprofen for sore throat relief. - Suggest taking allergy medication at night if drowsiness occurs. - Monitor symptoms and return if they worsen or if there is difficulty breathing. Patient was informed and verbally consented to the use of an ambient scribe for clinic note documentation during this visit Orders: Orders AMB Rapid Strep Screen Today Z13.9 - Encounter for screening, unspecified Coding Level of Care Code Est Pt Level 3 (53727) Diagnoses Seasonal allergic rhinitis due to pollen J30.1 Allergic rhinitis trigger: pollen
== END 2025-02-21 09:04 | disposition home or self-care (01) ==
PROVIDERS: PCP Physician Assistant; Visit Provider Physician Assistant
DX: J30.1 Allergic rhinitis due to pollen (principal); Z13.9 Encounter for screening, unspecified

== ENCOUNTER → 2025-02-21 08:37 | Outpatient (BNVA) | payer MEDICARE, MEDICAID, SELFPAY | PROVIDERS: PCP Physician Assistant; Visit Provider Physician Assistant | DX: J30.1 Allergic rhinitis due to pollen (principal) | CPT/HCPCS: 87880; 99212 ==

== ENCOUNTER 2025-06-28 07:30 | Outpatient (REF) | payer MEDICARE, MEDICAID, SELFPAY ==
[2025-06-28 11:36] LABS: Folate 10.6 ng/mL (> or = 4.0); Vitamin B12 499 pg/mL (200-900)
== END 2025-06-28 07:31 | disposition home or self-care (01) ==
LOC: HO.LAB 07:30
PROVIDERS: Absent Provider Physician Assistant; PCP Physician Assistant; Visit Provider Internal Medicine Gastroenterology
DX: K21.9 Gastro-esophageal reflux disease without esophagitis (principal); K76.0 Fatty (change of) liver, not elsewhere classified; R10.10 Upper abdominal pain, unspecified; R11.2 Nausea with vomiting, unspecified; K59.09 Other constipation; M25.511 Pain in right shoulder; R25.2 Cramp and spasm; R32 Unspecified urinary incontinence; Z86.0100 Personal history of colon polyps, unspecified
CPT/HCPCS: 36415; 82306; 82607; 82746; 83013; 84443; 99212

== ENCOUNTER 2025-06-28 07:30 | Outpatient (AMB) | payer MEDICARE, MEDICAID, SELFPAY ==
--- NOTE | 2025-06-28 07:34 | MHC.OFFVIS ---
Vital Signs 06/28/25 07:44 Height 4 ft 4 in Weight 130 lb BMI 33.8 BP 144/64 H Blood Pressure Location Lt brachial Position Sitting Pulse 98 Pulse Oximetry (%) 72 L Oxygen Delivery Method Room Air Intake Visit Reasons: constipation Intake Note: Patient yearly follow up for chronic constipation. Patient cc: acid reflux with chronic burning sensation with acid coming to her esophagus and sensation of chocking, abdominal pain, and constipation. 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 Required: No Accompanied by: Self / Same As Patient Allergies indomethacin Allergy (Intermediate, Verified 06/28/25 07:34) stomach upset, panic attack metoprolol Adverse Reaction (Intermediate, Verified 06/28/25 07:34) Fatigue tizanidine Adverse Reaction (Intermediate, Verified 06/28/25 07:34) hallucination valsartan Adverse Reaction (Intermediate, Verified 06/28/25 07:34) Difficulty Breathing tramadol Adverse Reaction (Mild, Verified 06/28/25 07:34) Anxiety Medication List - Last Reconciled 06/28/25 by Frederic Garrison MD aspirin 325 mg PO DAILY PRN 15 days baclofen 10 mg PO BID 7 days cetirizine (Zyrtec) 10 mg PO DAILY 90 days cholecalciferol (vitamin D3) 250 mcg PO 2XW 90 days colchicine 0.6 mg PO DAILY PRN 7 days famotidine 20 mg PO BID 90 days lorazepam 0.5 mg PO DAILY PRN 5 days lubiprostone 8 mcg PO BID 90 days olopatadine 0.2% 1 drp ophthalmic (eye) DAILY sennosides (senna) 17.2 mg (2 x 8.6 mg) PO DAILY PRN 90 days valacyclovir 2,000 mg (2 x 1 gram) PO Q12H 1 day HPI HPI constipation: Details: GI CLINIC VISIT FOR THIS 64-YEAR-OLD FEMALE FOR FU of FATTY LIVER WITH ELEVATED LFTS AND CHRONIC CONSTIPATION. Pt is status post cholecystectomy. CHRONIC ILLNESSES:?shoulder pain, muscle spasms, urinary incontinence, osteoarthritis, DEPRESSION, CONSTIPATION, LEUKOCYTOSIS. TODAY'S VISIT: Patient follow up of GERD and Constipation Patient complains of acid reflux with chronic burning sensation with acid coming to her esophagus and sensation of chocking, abdominal pain, and constipation. Pt is accompanied by her . Continues to have problems with heartburn with a burning sensation in the chest - day and night. Can gets worse after meals and takes Famotidine 20 mg twice a day Intermittent dysphagia with bread and has to drink something Taking Amitiza and having regular BMs. PAST VISIT: Omeprazole three times a week. Has a change in insurance ([facility] [facility] and has $ 8500 deductable) Has a BM daily Pt reports gaining a few lbs over the holidays. Lost 8 lbs after she had a bad gout attack Started to cut back on her caloric and sugar intake and foods which cause inflammation Unable to work for 2 days and treated with Prednisone for the pain. Taking a natural medication to control the uric acid (Quercitin) GERD controlled with Famotidine and takes Omperazole prn for breakthrough symptoms Continues to have intermittent constipation Taking zuleima and flax seeds and drinking a lot of water. Colonoscopy results reviewed. Constipation is better with Lubiprostone. Takes Omeprazole prn and occasionally Famotidine for GERD Accompanied by her (Got end of March,) Had bad heartburn on 04/20/22 after eating [employer]. Takes Omeprazole prn and advised to take it daily. Not straining too much since starting Lubiprostone. Intermittent episodes of pain during swallowing - mostly solids. Denies food getting stuck. It goes down and she feels some pressure throughout the esophagus while swallowing Has been eating soft foods and chewing it more. Always has heartburn especially at night. Taking Omeprazole and famotidine prn and not daily. Elevates HOB with pillows and advised to use a wedge. Always having issues with the constipation which effects her hemorrhoids. BMs are hard and associated with straining and causes her hemorrhoids to come out. Complains of 6-7/10 cramping and burning upper abdominal pain radiating to the back since 06/09/21 Has nausea, vomiting and diarrhea Complains of chills and denies fever. Has not been able to eat.? Has nausea after she eats and has to go to the bathroom. Taking crackers and joseph renee. Diarrhea appears to be resolving today. Admits to being anxious since her daughter is not talking to her. Due for 2nd dose of COVID vaccine on 12/31/20 ? Had similar pain last year and ended up vomiting in the ER at [facility] Treated with medications for nausea with improvement in her symptoms. ? Doing ok besides the COVID issue. ? She was having problems with gout LABS IN [facility]:03/18/20 REVIEWED MILDLY ELEVATED LFTS WITH AST OF 45, ALT 40, ALKALINE PHOSPHATASE 107, HEPATITIS-B AND C SEROLOGIES WERE NEGATIVE IN THE PAST.? ? Stool test was negative for Helicobacter pylori. IMAGING STUDIES: 08/2017 ABDOMINAL ULTRASOUND SHOWED: Echogenic liver probably representing fatty infiltration. Otherwise unremarkable exam. ENDOSCOPIC STUDIES: 10/05/22 COLONOSCOPY SHOWED: No polyps were detected. Patchy erythema in the right colon with scattered ulcers with some heme - random biopsies were obtained. (Pt denied NSAID or aspirin use)Moderate diverticulosis seen in the sigmoid colon Moderate hemorrhoids on retroflexed exam. Plan:? Repeat Colonoscopy in 5 years if biopsies are normal. random biopsies were manuel [facility] Medical History (Updated 07/02/25 @ 10:51 by Deepa Mccoy NP) Generalized pruritus HTN (hypertension) Irritation of eye Fatty liver History of adenomatous polyp of colon Chronic constipation History of Helicobacter pylori infection GERD without esophagitis Surgical History History of bilateral cataract extraction History of total abdominal hysterectomy History of laparoscopic cholecystectomy Hx of endoscopy Hx of colonoscopy Family History Father Hypertension Myocardial infarction CAD (coronary artery disease) Mother Hypertension Thyroid disease Family/Other Heart disease Asthma Epilepsy Social History Household Members: Significant Other Housing: Apartment Alcohol intake: never Patient Tobacco Use Status: Never used Tobacco Tobacco use type: Cigarette e-Cigarette/Vaping Use: Never Used Second Hand Smoke Exposure: No service: No Current occupational status: employed 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 Cognitive needs: No Hearing needs: No Vision needs: Yes Review of Systems Const Reports fatigue, Denies fever(s), Denies headache(s), Reports weight gain (of 10 lbs) and Denies weight loss Eyes Denies eye discharge and Denies irritation ENT Reports Normal hearing present, Reports dysphagia, Denies dizziness, Denies headache(s), Reports hoarseness and Reports sore throat Card Reports chest pain (sometimes), Denies leg edema and Reports dyspnea on exertion Resp Reports cough, Reports dyspnea on exertion and Denies wheezing GI Denies abdominal pain, Reports bloating, Denies change in bowel habits, Reports constipation, Reports dysphagia, Reports heartburn and Reports nausea Denies difficulty voiding, Denies dysuria and Reports other (Frequent urination/urgency - urine comes out without having enough time ) Musc Denies back pain, Reports arthralgias and Reports other (arthritis) Skin/Breast Denies pruritus, Denies rash and Denies jaundice Neuro Reports Normal hearing present, Denies Abnormal speech present, Denies dizziness, Denies headache(s) and Denies seizure-like activity Psych Reports anxiety, Reports depression and Denies panic attacks Endo Denies cold intolerance, Reports fatigue, Denies flushing and Denies heat intolerance Dany/Lymph Denies easy bleeding and Denies easy bruising Aller/Immun Denies wheezing Physical Exam Vital Signs: Last Vital Signs Pulse 98 06/28/25 07:44 BP 144/64 H 06/28/25 07:44 Pulse Ox 72 L 06/28/25 07:44 Oxygen Delivery Method Room Air 06/28/25 07:44 BMI result Body Mass Index 33.8 Const General: healthy appearing and no acute distress Nutritional Appearance: average body habitus Orientation/consciousness: patient oriented x3 Limitations: no limitations HEENT Head: Yes normal to inspection Ears: hearing grossly normal bilaterally Mouth: Normal oral and palatal mucosa present Eyes Sclerae: sclerae normal Pupils: Equal, round and reactive pupils present Neck Neck: Yes normal visual inspection Chest Chest palpation & inspection: normal inspection of the chest Resp Effort & Inspection: normal respiratory effort Auscultation: clear to auscultation bilaterally Cardio Palpation: normal PMI Rate: regular rate Rhythm: regular rhythm Heart sounds: S1 normal heart sound present, S2 normal heart sound present and no murmurs GI Palpation (GI): Soft to palpation, nontender and No hepatosplenomegaly present Auscultation: normal bowel sounds Rectal Exam - Female: deferred Skin General skin exam: no rashes or lesions noted Neuro General: patient oriented x3, gait normal and moves all extremities Cranial nerves: Yes Equal, round and reactive pupils present and Yes Normal hearing present Speech: No Abnormal speech present Psych Appearance: grossly normal Mental Status: mental status grossly normal Assessment & Plan Assessment & Plan (1) GERD without esophagitis: Comment: Continue omeprazole 20 mg once daily. Patient was treated with triple therapy for Helicobacter pylori consisting of clarithromycin, amoxicillin and omeprazole for 10 days. Follow-up stool for H pylori antigen was negative. Code(s): K21.9 - Gastro-esophageal reflux disease without esophagitis Category: Medical (2) Chronic constipation: Code(s): K59.09 - Other constipation Category: Medical (3) History of adenomatous polyp of colon: Comment: Three adenomatous polyps were removed during colonoscopy in Sep, 2019. 10/05/22 COLONOSCOPY SHOWED: No polyps were detected. Patchy erythema in the right colon with scattered ulcers with some heme - random biopsies were obtained. (Pt denied NSAID or aspirin use) Moderate diverticulosis seen in the sigmoid colon Moderate hemorrhoids on retroflexed exam. Plan: Repeat Colonoscopy in 5 years Code(s): Z86.010 - Personal history of colon polyps Category: Medical (4) Fatty liver: Code(s): K76.0 - Fatty (change of) liver, not elsewhere classified Category: Medical (5) Upper abdominal pain: Code(s): R10.10 - Upper abdominal pain, unspecified Category: Medical (6) Nausea and vomiting: Code(s): R11.2 - Nausea with vomiting, unspecified Category: Medical Plan 64 YF with shoulder pain, muscle spasms, urinary incontinence, osteoarthritis, depression, constipation, leukocytosis followed in GI for GERD, epigastric pain, chronic constipation, fatty liver related to obesity. Sep, 2019 Upper endoscopy showed nodular gastritis and gastric biopsies were positive for H pylori. Three adenomatous polyps were removed during same-day colonoscopy. Repeat colonoscopy is advised in 3 years and action was set in [facility]. Helicobacter pylori (H. pylori) infection - pt was treated with Clarithromycin, Amoxicillin and Omeprazole. Follow-up stool antigen for Helicobacter pylori was negative. 06/12/21 - Pt complained of abdominal pain, nausea, vomiting and diarrhea for 3-4 days - likely due to viral gastroenteritis/food poisoning. Diarrhea appears to be subsiding. Patient was advised to stop famotidine 20 mg and start omeprazole 20 mg twice daily with resolution of symptoms. 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 Sep, 2022 patient had a negative colonoscopy for FU of colon polyps. 04/29/2023 Continue Famotidine for GERD and Amitiza 8 mg daily for constipation 10/28/23 Continues to have problems with heartburn and takes Omeprazole three times a week. Has a change in insurance ([facility] and has $ 8500 deductable) Pt advised to take Famotidine 20 mg twice daily and if it is cheaper and GERD symptoms are well-controlled to DC omeprazole. 06/28/24 Pt advised to take Famotidine one to two times daily instead of prn FU in 4 months (FU of GERD, constipation and fatty liver) ADDENDUM: On 07/04/25 @ 11:00 Louisa Ryder Wrote To Frederic Garrison (2) Received fax from [facility] [employer] [facility] pharmacy requesting alternative to lubiprostone 8mcg capsules prescribed on 06/28/25 Pharmacy reports the prescribed medicine is not covered by insurance, please consider changing to a suggested covered alternative . Pharmacy suggests Linzess 145mcg capsules Pt switched to Linzess [address] of Amitiza. Orders: Orders Vitamin D 25-OH Total 06/28/25 K21.9 - Gastro-esophageal reflux disease without esophagitis H Pylori Breath Test 06/28/25 TSH reflex Free T4 06/28/25 K21.9 - Gastro-esophageal reflux disease without esophagitis Vitamin B12 and Folate 06/28/25 K21.9 - Gastro-esophageal reflux disease without esophagitis Medications: New omeprazole 20 mg PO BID 90 days 180 tabs 1RF K21.9 - Gastro-esophageal reflux disease without esophagitis Refilled lubiprostone 8 mcg PO BID 90 caps 1RF 90 days K59.09 - Other constipation Coding Level of Care Code Est Pt Level 4 (43353) Diagnoses GERD without esophagitis K21.9 Chronic constipation K59.09 History of adenomatous polyp of colon Z86.010 Fatty liver K76.0 Upper abdominal pain R10.10 Nausea and vomiting R11.2 Time Spent (min) 19
[2025-06-28 07:44] VITALS: BP 144/64; PULSE 98; O2SAT 72; BMI 33.8
== END 2025-06-28 08:29 | disposition home or self-care (01) ==
LOC: HO.HGI 07:31
PROVIDERS: PCP Physician Assistant; Visit Provider Internal Medicine Gastroenterology
DX: K21.9 Gastro-esophageal reflux disease without esophagitis (principal); K59.09 Other constipation; Z86.0100 Personal history of colon polyps, unspecified; K76.0 Fatty (change of) liver, not elsewhere classified; R10.10 Upper abdominal pain, unspecified; R11.2 Nausea with vomiting, unspecified
CPT/HCPCS: 99214

== ENCOUNTER 2025-07-02 09:38 | Outpatient (AMB) | payer MEDICARE, MEDICAID, SELFPAY ==
--- NOTE | 2025-07-02 09:50 | AM.OFFWIN_ITS ---
Intake Vital Signs 07/02/25 09:53 Height 4 ft 4 in Weight 131 lb BMI 34.1 BP 108/72 Blood Pressure Location Lt brachial Pulse 73 Temp 97.8 F Pulse Oximetry (%) 98 Intake Visit Reasons: EP-body rash & [id number] Patient Tobacco Use Status: Never used Tobacco Allergies indomethacin Allergy (Intermediate, Verified 06/28/25 07:34) stomach upset, panic attack metoprolol Adverse Reaction (Intermediate, Verified 06/28/25 07:34) Fatigue tizanidine Adverse Reaction (Intermediate, Verified 06/28/25 07:34) hallucination valsartan Adverse Reaction (Intermediate, Verified 06/28/25 07:34) Difficulty Breathing tramadol Adverse Reaction (Mild, Verified 06/28/25 07:34) Anxiety Do you need a note to return to daycare/school/sports/work: Yes HPI HPI Comments History of Present Illness Details 64 y/o Female patient who presents to [facility] walk [facility] clinic with c/o Generalized Body Pruritus for few days now. Reports noticing a Rash on her back, torso and lower body. She took Claritin and Benadrly with no much relief. Denies any new cosmetic products. Denies any new medications, detergent or soap products. [facility] Medical History (Updated 07/02/25 @ 10:51 by Deepa Mccoy NP) Generalized pruritus HTN (hypertension) Irritation of eye Fatty liver History of adenomatous polyp of colon Chronic constipation History of Helicobacter pylori infection GERD without esophagitis Surgical History History of bilateral cataract extraction History of total abdominal hysterectomy History of laparoscopic cholecystectomy Hx of endoscopy Hx of colonoscopy Family History Father Hypertension Myocardial infarction CAD (coronary artery disease) Mother Hypertension Thyroid disease Family/Other Heart disease Asthma Epilepsy Social History Household Members: Significant Other Housing: Apartment Alcohol intake: never Patient Tobacco Use Status: Never used Tobacco Tobacco use type: Cigarette e-Cigarette/Vaping Use: Never Used Second Hand Smoke Exposure: No service: No Current occupational status: employed 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 Cognitive needs: No Hearing needs: No Vision needs: Yes Review of Systems Const All systems reviewed & are unremarkable except as noted in HPI and below Physical Exam Vital Signs: Last Vital Signs Temp 97.8 F 07/02/25 09:53 Pulse 73 07/02/25 09:53 BP 108/72 07/02/25 09:53 Pulse Ox 98 07/02/25 09:53 BMI result Body Mass Index 34.1 Const General: no acute distress Nutritional Appearance: overweight Orientation/consciousness: patient oriented x3 Skin Other: No visible Rash present today. Neuro General: patient oriented x3, gait normal and moves all extremities Psych Speech and movement: Normal speech and movement present Assessment & Plan Assessment & Plan (1) Generalized pruritus: Code(s): L29.9 - Pruritus, unspecified Plan: Advised to double the Zyrtec dose for few days. Take Benadrly 50 mg at Bedtime. F/U with PCP for possible Referral for allergy testing. Medications: Changed From cetirizine (Zyrtec) 10 mg PO DAILY 90 days 90 tabs 1RF L29.9 - Pruritus, unspecified To cetirizine (Zyrtec) TAKE 1 TAB IN THE AM/PM FOR FEW DAYS. 10 mg PO DAILY 60 tabs 0RF L29.9 - Pruritus, unspecified Coding Level of Care Code Est Pt Level 4 (06899) Diagnoses Generalized pruritus L29.9 Time Spent (min) 20
[2025-07-02 09:53] VITALS: BP 108/72; PULSE 73; TEMP 36.6; O2SAT 98; BMI 34.1
== END 2025-07-02 11:13 | disposition home or self-care (01) ==
PROVIDERS: PCP Physician Assistant; Visit Provider Nurse Practitioner Family
DX: L29.9 Pruritus, unspecified (principal)

== ENCOUNTER → 2025-07-02 09:38 | Outpatient (BNVA) | payer MEDICARE, MEDICAID, SELFPAY | PROVIDERS: PCP Physician Assistant; Visit Provider Nurse Practitioner Family | DX: K21.9 Gastro-esophageal reflux disease without esophagitis (principal); L29.9 Pruritus, unspecified | CPT/HCPCS: 99212 ==

== ENCOUNTER 2025-08-21 07:44 | Outpatient (AMB) | payer OTHER, MEDICARE, SELFPAY ==
[2025-08-21 07:52] VITALS: BP 128/72; PULSE 78; O2SAT 98; BMI 33.5
--- NOTE | 2025-08-21 07:52 | A.OFFVIS_ITS ---
Intake Vital Signs 08/21/25 07:52 Height 4 ft 4 in Weight 129 lb BMI 33.5 BP 128/72 Blood Pressure Location Lt brachial Position Sitting Pulse 78 Pulse Source Pulse Oximeter Pulse Oximetry (%) 98 Oxygen Delivery Method Room Air Intake Visit Reasons: AWV Allergies indomethacin Allergy (Intermediate, Verified 08/21/25 08:06) stomach upset, panic attack metoprolol Adverse Reaction (Intermediate, Verified 08/21/25 08:06) Fatigue tizanidine Adverse Reaction (Intermediate, Verified 08/21/25 08:06) hallucination valsartan Adverse Reaction (Intermediate, Verified 08/21/25 08:06) Difficulty Breathing tramadol Adverse Reaction (Mild, Verified 08/21/25 08:06) Anxiety Medication List - Last Reconciled 08/21/25 by Sean Teresa PA-C cetirizine (Zyrtec) 10 mg PO DAILY cholecalciferol (vitamin D3) 250 mcg PO 2XW 90 days famotidine 20 mg PO TID 30 days linaclotide (Linzess) 145 mcg PO QAM 30 days lubiprostone 8 mcg PO BID 90 days olopatadine 0.2% 1 drp ophthalmic (eye) DAILY sennosides (senna) 17.2 mg (2 x 8.6 mg) PO DAILY PRN 90 days HPI AWV HPI Details Patient is a 65-year-old female here today for an annual wellness visit. Patient has a past medical history significant for hypertension, anxie ty, irritable bowel syndrome constipation type and allergies. Today we discussed patient's upper [place] of care, end of life planning . We also discussed the patient's comprehensive care plan which was scanned into patient's documents Vaccine: Needs Flu, COVID, pneumonia and tetanus vaccines, PCV-20 .. Colonoscopy:? Colonoscopy done in 2022- normal, repeat 5 years. . METAL BALER:Has had hysterectomy .. Mammo : Mammogram done in 06/02/2024 BI-RADS 1 HPI Comments History of Present Illness Details reviewed past medical history- yes reviewed surgical / hospitalization history- yes reviewed current medications- yes reviewed family history- yes home safety throw rugs? grab bars? raised toilet seat? working smoke detectors? activities of daily living difficulty bathing or showering? difficulty dressing? difficulty using the toilet? difficulty getting in and out of bed? difficulty walking? receives help from other person's with any of the above tasks? instrumental activities of daily living uses telephone - gets to place out of walking distance- go shopping for groceries- repairs own meals- does own minor home maintenance- does own laundry- does own housework- manages own money- currently takes medication- end of life planning discussed advanced directives- yes advanced directives on file? discussed wishes expressed in advanced directives. fall risk have you had any falls with injuries in the past year? have you had 2 or more falls in the past year? fall risk assessment: [facility] Medical History (Updated 08/21/25 @ 08:42 by Sean Teresa PA-C) Generalized pruritus HTN (hypertension) Irritation of eye Fatty liver History of adenomatous polyp of colon Chronic constipation History of Helicobacter pylori infection GERD without esophagitis Surgical History History of bilateral cataract extraction History of total abdominal hysterectomy History of laparoscopic cholecystectomy Hx of endoscopy Hx of colonoscopy Family History Father Hypertension Myocardial infarction CAD (coronary artery disease) Mother Hypertension Thyroid disease Family/Other Heart disease Asthma Epilepsy Social History Household Members: Significant Other Housing: Apartment Alcohol intake: never Patient Tobacco Use Status: Never used Tobacco Tobacco use type: Cigarette e-Cigarette/Vaping Use: Never Used Second Hand Smoke Exposure: No service: No Current occupational status: employed 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 Cognitive needs: No Hearing needs: No Vision needs: Yes Questionnaire Medicare Wellness Checkup [age] 65-68 What gender do you identify with?: female During the past 4 weeks, how much have you been bothered by emotional problems such as feeling anxious, depressed, irritable, sad or downhearted, and blue?: moderately During the past 4 weeks, has your physical & emotional health limited your social activities with family, friends, neighbors, or groups?: moderately During the past 4 weeks, how much bodily pain have you generally had?: moderate pain During the past 4 weeks, was someone available to help you if you needed & wanted help?: yes, quite a bit During the past 4 weeks, what was the hardest physical activity you could do for at least 2 minutes?: moderate Can you get to places out of walking distance without help? (For eg., can you travel alone on buses, taxis or drive your car?): Yes Can you go shopping for groceries or clothes without someone's help?: Yes Can you prepare your own meals?: Yes Can you do your housework without help?: Yes Because of any health problems, do you need the help of another person with your personal care needs such as eating, bathing, dressing or getting around the house?: No Can you handle your own money without help?: Yes During the past 4 weeks, how would you rate your health in general?: good During the past 4 weeks how have things been going for you?: good & bad parts about equal Are you having difficulties driving your car?: no Do you always fasten your seat belt when you are in a car?: yes, usually During past 4 weeks, have you been bothered by the following: never: Problems using the telephone?, seldom: Teeth or denture problems?, sometimes: Falling or dizzy when standing up, Trouble eating well? and Tiredness or fatigue? and always: Sexual problems? Have you fallen 2 or more times in the past year?: Yes Are you afraid of falling?: Yes Are you a smoker?: no During the past 4 weeks, how many drinks of wine, beer, or other alcoholic beverages did you have?: no alcohol at all Do you exercise for about 20 minutes 3 or more times a week?: no, I usually do not exercise this much Have you been given information to help with the following?: no: Hazards in your house that might hurt you? and no: Keeping track of your medications? How often do you have trouble taking medicines the way you have been told to take them?: I seldom take medications as prescribed How confident are you that you can control & manage most of your health problems?: very confident What is your race?: or origin or descent Mini Mental State Exam (MMSE) Orientation What is the (year) (season) (date) (day) (month)?: year Where are we (state) (county) (town or city) (hospital) (floor)?: town or city Attention & Calculation (CHOOSE ONE) Spell WORLD backwards (DLROW): 5 letters Score Score: 7 Activity of Daily Living Bathing - sponge bath, tub bath or shower: receives no assistance (gets in/out by self, if usual bathing means Dressing - getting clothes from closets & drawers, including inner/outer garments & fasteners.: gets clothes & gets completely dressed without help Toileting - going to the 'toilet room' for urine/bowel elimination & cleaning self/arranging clothes: goes to toilet room, cleans self, arranges clothes without help Transfer: moves in & out of bed and chair without help (may use support object) Continence: controls urination/bowel movements completely by self Feeding: feeds self without help Total Score: 0 Information obtained from: patient Using telephone: independent Traveling: independent Shopping: independent Preparing meals: independent Housework: independent Taking medicine: independent Managing money: independent PHQ-9 Over the last 2 weeks, how often have you been bothered by any of the following problems? 1. Little interest or pleasure in doing things: several days 2. Feeling down, depressed, or hopeless: more than half the days 3. Trouble falling or staying asleep, or sleeping too much: nearly every day 4. Feeling tired or having little energy: several days 5. Poor appetite or overeating: more than half the days 6. Feeling bad about yourself - or that you are a failure or have let yourself or your family down: more than half the days 7. Trouble concentrating on things, such as reading the newspaper or watching television: more than half the days 8. Moving or speaking so slowly that other people could have noticed. Or the opposite - being so fidgety or restless that you have been moving around a lot more than usual: several days 9. Thoughts that you would be better off or of hurting yourself in some way: not at all Total score: 14 Depression Screening Interpretation: Positive Depression Screening Follow-up: Existing condition Depression Screening Done: Yes 07927 - PHQ-9 Billing: Yes Source: Developed by Drs. Cruz Perez, Zita Gillis, Regis Cabello and colleagues, with an educational carmencita from [employer]. Physical Exam Vital Signs: Last Vital Signs Pulse 78 08/21/25 07:52 BP 128/72 12/09/25 07:52 Pulse Ox 98 08/21/25 07:52 Oxygen Delivery Method Room Air 08/21/25 07:52 BMI result Body Mass Index 33.5 HEENT Other: hearing screening whisper test- passed Eyes Other: vision screening- 20 20 OS O OU Other: urinary incontinence? no Neuro Other: balance Romberg- normal tandem walk test- able walk-in turned test- able rise from sit to stand- within 2 seconds Office Procedures Flu Questionnaire Does the patient have a severe egg allergy?: No Does the patient have severe life threatening allergies?: No Does the patient have a fever or illness today?: No Has the patient ever had Guillain-[place] Syndrome?: No Has the patient ever had any past reaction to a flu shot?: No Immunizations Fluarix [id number] (PF) 45 mcg (15 mcg x 3)/0.5 mL IM syringe Performing Provider: Sean Teresa PA-C [facility] Administered by: Aleta Padron CMA on 08/21/25 08:36 Dose Route Admin Location Dispensed Lot Number Expiration Date NDC Beamer Hand 0.5 mL IM Left Deltoid 0.5 mL [id number] 03/12/26 14353-965-89 Remark Media VIS Given Date VIS Provided VIS Publication Date 08/21/25 Single Vaccine 24 Eligibility Eligibility Date Funding Source Not [facility] Eligible 08/21/25 Private Assessment & Plan Assessment & Plan (1) Encounter for annual wellness visit (AWV) in Medicare patient: Code(s): Z00.00 - Encounter for general adult medical examination without abnormal findings Plan: As per HPI (2) Breast cancer screening: Code(s): Z12.39 - Encounter for other screening for malignant neoplasm of breast Qualifiers: Breast cancer screening modality: mammogram Qualified Code(s): Z12.31 - Encounter for screening mammogram for malignant neoplasm of breast Plan: Patient willing to do mammogram (3) Right foot pain: Code(s): M79.671 - Pain in right foot Plan: Patient reporting dorsal right foot pain, she is interested in getting an x-ray. It appears she has a footare issue (4) Post-menopausal: Code(s): Z78.0 - Asymptomatic menopausal state Plan: Patient willing to do DEXA screening (5) SNHL (sensorineural hearing loss): Code(s): H90.5 - Unspecified sensorineural hearing loss Qualifiers: Laterality: bilateral Qualified Code(s): H90.3 - Sensorineural hearing loss, bilateral Plan: Hearing exam (6) MDD (major depressive disorder), recurrent episode, mild: Code(s): F33.0 - Major depressive disorder, recurrent, mild Plan: Patient's PHQ-9 score positive for depression which has been existing condition for her. She is not interested starting mental health medication at this time. She reports most of her depression is coming from stress related to her drop. Orders: Orders Influenza [id number] Immunization Today Z23 - Encounter for immunization MM screening mammo BI Today Z12.31 - Encounter for screening mammogram for malignant neoplasm of breast Uric Acid Today M1A.0710 - Idiopathic chronic gout, right ankle and foot, without tophus (tophi) Comprehensive Rozel. Panel Fast Today I10 - Essential (primary) hypertension Complete Blood Count no Diff Today I10 - Essential (primary) hypertension XR DEXA axial skeleton Today Z78.0 - Asymptomatic menopausal state XR foot RT 2V Today M79.671 - Pain in right foot Referrals Speech and Hearing Referral H90.5 - Unspecified sensorineural hearing loss Quality Reporting (2020) Depression/Bipolar (159/160/161/177) PHQ-9: Total score: 14 Coding Level of Care Code Medicare First (G0438) Est Pt Level 3 (45172) Diagnoses Encounter for annual wellness visit (AWV) in Medicare patient Z00.00 Encounter for screening mammogram for malignant neoplasm of breast Z12.31 Breast cancer screening modality: mammogram Right foot pain M79.671 Post-menopausal Z78.0 Sensorineural hearing loss (SNHL) of both ears H90.3 Laterality: bilateral MDD (major depressive disorder), recurrent episode, mild F33.0 CPT Codes Advance Care Planning - Time spent: 1-15 minutes, not on file ([id number]) Additional Codes PHQ-9 - 20876 - PHQ-9 Billing: Yes ([id number]) Advance Care Planning Advance Care Planning discussion: Completed/Scanned Date of discussion: 08/21/25 Who was present: Patient's Forms completed: MOLST Time spent: 1-15 minutes, not on file Actual minutes spent: 5
== END 2025-08-21 08:43 | disposition home or self-care (01) ==
PROVIDERS: PCP Physician Assistant; Visit Provider Physician Assistant
DX: Z00.00 Encounter for general adult medical examination without abnormal findings (principal); M79.671 Pain in right foot; H90.3 Sensorineural hearing loss, bilateral; F33.0 Major depressive disorder, recurrent, mild; Z12.31 Encounter for screening mammogram for malignant neoplasm of breast; Z78.0 Asymptomatic menopausal state; Z23 Encounter for immunization

== ENCOUNTER → 2025-08-21 07:44 | Outpatient (BNVA) | payer MEDICARE, SELFPAY | PROVIDERS: PCP Physician Assistant; Visit Provider Physician Assistant | DX: Z13.31 Encounter for screening for depression (principal); Z23 Encounter for immunization | CPT/HCPCS: 90471; 90656; 96127 ==

== ENCOUNTER 2025-09-03 09:10 | Outpatient (AMB) | payer MEDICARE, SELFPAY ==
--- NOTE | 2025-09-03 09:19 | AM.OFFWIN_ITS ---
Intake Vital Signs 09/03/25 09:20 Height 4 ft 4 in Weight 131 lb BMI 34.1 BP 132/84 Blood Pressure Location Rt brachial Position Sitting Pulse 84 Pulse Source Pulse Oximeter Temp 98.2 F Temp Source Oral Pulse Oximetry (%) 97 Oxygen Delivery Method Room Air Intake Visit Reasons: EP Sore throat, fever, sneezing, cough Intake Note: pt presents with chest congestion with coughing, sinus congestion, bilateral ear pain, sore throat 5 days Patient Tobacco Use Status: Never used Tobacco Allergies indomethacin Allergy (Intermediate, Verified 09/03/25 09:24) stomach upset, panic attack metoprolol Adverse Reaction (Intermediate, Verified 09/03/25 09:24) Fatigue tizanidine Adverse Reaction (Intermediate, Verified 09/03/25 09:24) hallucination valsartan Adverse Reaction (Intermediate, Verified 09/03/25 09:24) Difficulty Breathing tramadol Adverse Reaction (Mild, Verified 09/03/25 09:24) Anxiety Do you need a note to return to daycare/school/sports/work: Yes HPI HPI Comments History of Present Illness Details History - The patient is a 65-year-old female pr esenting with symptoms of an upper respiratory infection that began last Wednesday. - Her symptoms include sneezing, non-pro ductive cough, sore throat, constant nasal congestion, and bilateral ear pain. - She reports experiencing a subjective fever over the weekend but did not measure her temperature. - Self-care has included rest, drinking tea and orange juice, and taking ibuprofen and Benadryl, with the latter providing no relief. - She missed work on Wednesday and the day of the visit due to her symptoms. - She has no sick contacts. - She has not travelled recently. - She denies HEBERT, CP, SOB, abd pain, n/v/ d. Physical Exam General: Cooperative, healthy appearing, comfortable and no acute distress Orientation/consciousness: Patient oriented x3 Limitations: No limitations Head: Normal to inspection Ears: Hearing grossly normal bilaterally, external ears normal. Both ears with pain and slight redness, but no fluid or infection noted. Nose: Normal external nose present, normal nares present, and nasal congestion present. Face and sinus: Sinuses nontender to palpation. Mouth: Normal oral and palatal mucosa present and moist mucous membranes noted. Throat: Tonsils normal. Uvula is midline. Posterior oropharynx with erythema and no exudates. Eyes: Appearance normal, both eyes and all related structures Neck: Normal visual inspection, full ROM. No lymphadenopathy noted. Respiratory: Clear to auscultation bilaterally. Normal respiratory effort, able to speak in complete sentences. No respiratory distress, not tachypneic, no tripod positioning and no use of accessory muscles. Cardiovascular: Regular rate and rhythm. Normal S1 and S2. No m/r/g noted Skin: No rashes or lesions noted Patient was informed and verbally consented to the use of an ambient scribe for clinic note documentation during this visit [facility] Medical History (Updated 08/21/25 @ 08:42 by Sean Teresa PA-C) Generalized pruritus HTN (hypertension) Irritation of eye Fatty liver History of adenomatous polyp of colon Chronic constipation History of Helicobacter pylori infection GERD without esophagitis Surgical History History of bilateral cataract extraction History of total abdominal hysterectomy History of laparoscopic cholecystectomy Hx of endoscopy Hx of colonoscopy Family History Father Hypertension Myocardial infarction CAD (coronary artery disease) Mother Hypertension Thyroid disease Family/Other Heart disease Asthma Epilepsy Social History Household Members: Significant Other Housing: Apartment Alcohol intake: never Patient Tobacco Use Status: Never used Tobacco Tobacco use type: Cigarette e-Cigarette/Vaping Use: Never Used Second Hand Smoke Exposure: No service: No Current occupational status: employed 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 Cognitive needs: No Hearing needs: No Vision needs: Yes Review of Systems Const All systems reviewed & are unremarkable except as noted in HPI and below Physical Exam Vital Signs: Last Vital Signs Temp 98.2 F 09/03/25 09:20 Pulse 84 09/03/25 09:20 BP 132/84 09/03/25 09:20 Pulse Ox 97 09/03/25 09:20 Oxygen Delivery Method Room Air 09/03/25 09:20 BMI result Body Mass Index 34.1 Results AMB Rapid Strep AMB Rapid Strep Negative Last Edit by Shraddha Zuniga CMA on 09/03/25 09:3 5 Results Reviewed Results Reviewed: Laboratory Last Values Strep Scn Rapid Clinic Negative 09/03/25 09:34 Assessment & Plan Assessment & Plan (1) URI with cough and congestion: Code(s): J06.9 - Acute upper respiratory infection, unspecified Plan Most likely Acute Upper Respiratory Infection vs covid vs flu vs RSV vs allergic rhinitis vs viral illnes plan - A rapid strep test was conducted in the clinic and yielded a negative result. - A swab for COVID-19, influenza, and RSV was collected, with results expected later today. - Prescriptions for a decongestant, a nasal spray, and a cough medicine containing a throat-numbing agent were electronically sent to the pharmacy. - The patient will be contacted with the viral panel results later today. - She was advised that a work note can be provided for today and that she can return to work as long as she remains afebrile, contingent on negative viral test results. - Recommended rest and home care. - follow up with PCP Orders: Orders AMB Rapid Strep Screen Today Z13.9 - Encounter for screening, unspecified SARS-CoV2/FLU/RSV Today R09.89 - Other specified symptoms and signs involving the circulatory and respiratory systems Medications: New cetirizine-pseudoephedrine 5-120 mg ER 1 tab PO BID 14 tabs 0RF 7 days benzonatate 100 mg PO bid-tid PRN 21 caps 0RF Cough 7 days fluticasone propionate 50 mcg/actuation administer into each nostril 1 spray intranasal Q12H 16 grams 0RF Coding Level of Care Code Est Pt Level 3 (20446) Diagnoses URI with cough and congestion J06.9
[2025-09-03 09:20] VITALS: BP 132/84; PULSE 84; TEMP 36.8; O2SAT 97; BMI 34.1
== END 2025-09-03 10:03 | disposition home or self-care (01) ==
PROVIDERS: PCP Physician Assistant; Visit Provider Physician Assistant Medical
DX: J06.9 Acute upper respiratory infection, unspecified (principal); Z13.9 Encounter for screening, unspecified

== ENCOUNTER 2025-09-03 09:10 | Outpatient (REF) | payer MEDICARE, SELFPAY ==
[2025-09-03 11:30] LABS: Resp Syncy Virus RNA Qual PCR POSITIVE (Negative); SARS COV2 PCR INHOUSE NEGATIVE (Negative)
== END 2025-09-03 09:11 | disposition home or self-care (01) ==
LOC: HO.LNP 09:10
PROVIDERS: Physician Assistant Medical; PCP Physician Assistant
DX: R09.89 Other specified symptoms and signs involving the circulatory and respiratory systems (principal); R50.9 Fever, unspecified
CPT/HCPCS: 87637